=== PATIENT | female | born 1975 | race Caucasian/White ===

== ENCOUNTER 2017-02-28 07:06 | Day surgery (SDC) | payer BC ==
[2017-02-26 16:29] VITALS: BMI 39.5
[~2017-02-28 07:06] MED LIST: CLINDAMYCIN 900 MG in DEXTROSE 5% IN WATER 50 ML IVPB ONE; DEXAMETHASONE SOD PHOSPHATE 10 MG/ML 1 ML VIAL IV ONE; GENTAMICIN 400 MG in SODIUM CHLORIDE 0.9% 100 ML IVPB ONE; HEPARIN SODIUM,PORCINE 5,000 UNIT/ML 1 ML VIAL SQ ONE; HYDROmorphone 0.5 MG/0.5 ML SYRINGE IVP PRN; LIDOCAINE 1% 20 ML VIAL (10MG/ML) FOR IV START INTRADERMA PRN; MIDAZOLAM 2 MG/2 ML VIAL IV PRN; ONDANSETRON 4 MG/2 ML VIAL IVP ONE; SCOPOLAMINE 1.5MG/72HR PATCH TRANSDERM ONE
[2017-02-28] MEDS: LACTATED RINGERS 1,000 ML IV SCH ×2 (07:42→08:18)
[2017-02-28] MEDS ORDERED: NEOSTIGMINE 1 MG/ML 10 ML VIAL ONE (08:18)
[2017-02-28] MEDS ORDERED: PROPOFOL 10 MG/ML 20 ML VIAL IV ONE (08:18)
[2017-02-28] MEDS ORDERED: SUCCINYLCHOLINE CHLORIDE 100 MG/5 ML SYR IV ONE (08:18)
[2017-02-28] MEDS ORDERED: BUPIVACAINE-EPI 0.5%-1:200,000 10 ML VIAL SQ ONE (08:18)
[2017-02-28] MEDS ORDERED: fentaNYL (PF) 50 MCG/ML 2 ML AMP ONE (08:18)
[2017-02-28] MEDS ORDERED: GLYCOPYRROLATE 0.2 MG/ML 2 ML VIAL ONE (08:18)
[2017-02-28] MEDS ORDERED: LIDOCAINE 1% INJ 10MG/ML (20 ML MDV) ONE (08:18)
[2017-02-28] MEDS ORDERED: ROCURONIUM BROMIDE 10 MG/ML 10 ML VIAL IV ONE (08:18)
[2017-02-28] MEDS ORDERED: HYDROmorphone (PF) 1 MG/ML ONE (08:18)
[2017-02-28] MEDS ORDERED: NALOXONE 0.4 MG/ML 1 ML VIAL IV PRN (09:45)
[2017-02-28] MEDS ORDERED: HYDROcodone/APAP 5-325MG 1 EACH TAB PO PRN (09:45)
--- NOTE | 2017-02-28 09:47 | P.OP ---
Date of Procedure: 02/28/17 Procedure(s) Performed: PREOPERATIVE DIAGNOSIS: Chronic cholecystitis POSTOPERATIVE DIAGNOSIS: Same PROCEDURE: Laparoscopic cholecystectomy SURGEON: Mica EBL: Minimal see anesthesia record ANESTHESIA: Gen. COMPLICATIONS: None OPERATIVE PROCEDURE: The patient was brought and placed on the operating room table in the supine position. The patient was placed under general anesthesia at that time. The abdomen was prepped and draped in the usual sterile fashion. A small vertical infraumbilical incision was made. The fascia was grasped with the Cameron forceps. The fascia was retracted anteriorly. The Veress needle was advanced into the peritoneal cavity. The saline drop test was normal. Insufflation took place up to 15 mmHg. A 5 mm optical trocar was advanced and the peritoneal cavity. 2 additional 5 mm trochars were placed in the right upper quadrant under direct visualization. A 10 mm trocar was advanced into the epigastric incision site. The gallbladder was retracted superiorly and laterally. The peritoneum overlying the infundibulum was bluntly dissected. The patient's cystic duct was visualized. The junction between the cystic duct common and hepatic duct was identified. The cystic duct was then divided after placement of 3 10 mm clips on the patient's side and one on the specimen side. The cystic artery was identified and clipped as well. A small vessel was seen along the gallbladder fossa and clipped as well. The gallbladder was then removed from the liver bed using electrocautery. The gallbladder was then removed from the epigastric trocar site with an Endo Catch bag. The gallbladder fossa was irrigated with saline. There was no evidence of any bleeding or biliary drainage seen. The trochars were then removed. The fascia at the 10 millimeter site was closed using a Antoine- Dolores 0 Vicryl stitch. The skin at all 4 sites was closed using a 4-0 Monocryl stitch. At the end of this procedure the sponge and needle counts were correct. DISPOSITION: Stable to the recovery room
[2017-02-28 09:49] VITALS: TEMP 98.6
[2017-02-28] MEDS ORDERED: HYDROmorphone 1 MG/ML 1 ML SYRINGE IVP ONE ×4 (09:58→10:28)
[2017-02-28] MEDS ORDERED: LACTATED RINGERS 1,000 ML IV ONE (10:09)
[2017-02-28] MEDS ORDERED: MEPERIDINE 50 MG/ML SYRINGE IVP ONE (10:42)
[2017-02-28] MEDS ORDERED: HYDROcodone/APAP 5-325MG 1 EACH TAB PO ONE (11:39)
[2017-02-28 12:55] VITALS: BP 128/74; PULSE 62; RESP 16
== END 2017-02-28 13:34 | disposition home or self-care (01) ==
LOC: OR 07:06
PROVIDERS: ATTEND Surgery
DX: K81.1 Chronic cholecystitis (principal); E03.9 Hypothyroidism, unspecified; M79.7 Fibromyalgia; Z88.3 Allergy status to other anti-infective agents; Z91.013 Allergy to seafood; Z88.1 Allergy status to other antibiotic agents; Z79.899 Other long term (current) drug therapy
CPT/HCPCS: 47562; 81025; 88304; J1100; J2710; J2175; J2405; J2001; J3010; J1170; J0330; J2704

== ENCOUNTER 2017-05-14 09:12 | Observation (INO) | payer BC ==
[2017-05-14] MEDS ORDERED: ASPIRIN 81 MG PO STA (09:35)
[2017-05-14] MEDS ORDERED: NITROGLYCERIN OINT 1 INCH/GM PACKET TOPICAL STA (09:35)
[2017-05-14 09:45] LABS: Basophils % (A) 1 %; Eosinophils # (A) 0.2 k/uL (0-0.7); Eosinophils % (A) 3 %; HCT 37.2 % (34.0-46.0); Lymphocytes # (A) 1.7 k/uL (1.0-4.8); Lymphocytes % (A) 26 %; MCHC 32.4 g/dL (31.0-37.0); MCV 86.4 fL (80.0-100.0); Mean Platelet Volume 6.6; Monocytes # (A) 0.3 k/uL (0-1.0); Monocytes % (A) 4 %; Neutrophils # (A) 4.1 k/uL (1.3-7.7); Neutrophils % (A) 64 %; Platelet Count 261 k/uL (150-450); RDW 13.7 % (11.5-15.5); WBC 6.4 k/uL (3.8-10.6)
--- NOTE | 2017-05-14 09:48 | ED ---
General Adult HPI - General Chief complaint: Chest Pain Stated complaint: Chest/Back Arm Pain Time Seen by Provider: 05/14/17 09:22 Source: patient, RN notes reviewed Mode of arrival: ambulatory Limitations: no limitations - History of Present Illness Initial comments: Patient is a pleasant 42-year-old female presenting to the emergency Department with chest discomfort. Symptoms have been waxing and waning over the past couple of weeks. Symptoms somewhat worse today. Patient did have some associated nausea this morning. Discomfort has previously rated 2 to the jaw. Discomfort today radiates to the left arm and back. Discomfort feels sharp. Patient has some chronic dyspnea that is unchanged from baseline. No diaphoresis. - Related Data Home Medications Medication Instructions Recorded Confirmed Citalopram Hydrobromide [CeleXA] 40 mg PO DAILY 11/10/13 05/14/17 Levothyroxine Sodium [Synthroid] 100 mcg PO DAILY 11/10/13 05/14/17 Ergocalciferol [Vitamin D2] 50,000 unit PO WE 02/14/15 05/14/17 Gabapentin [Neurontin] 300 mg PO BID 02/26/17 05/14/17 Multivitamins, Thera [Multivitamin 1 tab PO DAILY 05/14/17 05/14/17 (formulary)] Allergies Allergy/AdvReac Type Severity Reaction Status Date / Time iodine Allergy Rash/Hives Verified 05/14/17 09:45 loracarbef [From Lorabid] Allergy Rash/Hives Verified 05/14/17 09:45 shellfish derived [Shellfish] Allergy Rash/Hives Verified 05/14/17 09:45 Review of Systems ROS Statement: Those systems with pertinent positive or pertinent negative responses have been documented in the HPI. ROS Other: All systems not noted in ROS Statement are negative. Constitutional: Denies: fever Eyes: Denies: eye pain ENT: Denies: ear pain Respiratory: Denies: cough Cardiovascular: Reports: chest pain Endocrine: Reports: fatigue Gastrointestinal: Reports: nausea. Denies: abdominal pain Genitourinary: Denies: dysuria Musculoskeletal: Denies: back pain Skin: Denies: rash Neurological: Denies: weakness Past Medical History Past Medical History: Fibromyalgia, Thyroid Disorder Additional Past Medical History / Comment(s): IBS, History of Any Multi-Drug Resistant Organisms: None Reported Past Surgical History: Adenoidectomy, Appendectomy, Section, Cholecystectomy, Tonsillectomy, Tubal Ligation Additional Past Surgical History / Comment(s): ganglion cyst left wrist Past Anesthesia/Blood Transfusion Reactions: No Reported Reaction Past Psychological History: Depression Smoking Status: Former smoker Past Alcohol Use History: None Reported Past Drug Use History: None Reported - Past Family History Mother Family Medical History: No Reported History General Exam Limitations: no limitations General appearance: alert, in no apparent distress Head exam: Present: atraumatic Eye exam: Present: normal appearance, PERRL ENT exam: Present: normal oropharynx Neck exam: Present: normal inspection Respiratory exam: Present: normal lung sounds bilaterally. Absent: chest wall tenderness Cardiovascular Exam: Present: regular rate, normal rhythm Expanded Peripheral pulses: 2+: Radial (R), Radial (L), Dorsalis Pedis (R), Dorsalis Pedis (L) GI/Abdominal exam: Present: soft. Absent: tenderness Extremities exam: Present: normal inspection. Absent: pedal edema, calf tenderness Back exam: Present: normal inspection. Absent: tenderness Neurological exam: Present: alert Psychiatric exam: Present: normal affect, normal mood Skin exam: Present: normal color Course Vital Signs 05/14/17 05/14/17 09:13 10:12 Temperature 98.1 F Pulse Rate 70 70 Respiratory 20 18 Rate Blood Pressure 155/83 152/86 O2 Sat by Pulse 98 99 Oximetry EKG Findings - EKG Comments: EKG Findings:: Normal sinus rhythm 70. TX 134. QRS 84. QT 410. QTc 442. Normal axis. Nonspecific T waves. Normal QRS. Medical Decision Making - Medical Decision Making Patient reevaluated and improved with nitroglycerin. Patient updated on results and plan. Case was discussed in detail with Dr. Garza, who will admit for Dr. Carrillo. - Lab Data Result diagrams: 05/14/17 09:25 05/14/17 09:25 Lab Results 05/14/17 05/14/17 05/14/17 Range/Units 09:25 09:25 09:25 WBC 6.4 (3.8-10.6) k/uL RBC 4.30 (3.80-5.40) m/uL Hgb 12.0 (11.4-16.0) gm/dL Hct 37.2 (34.0-46.0) % MCV 86.4 (80.0-100.0) fL MCH 28.0 (25.0-35.0) pg MCHC 32.4 (31.0-37.0) g/dL RDW 13.7 (11.5-15.5) % Plt Count 261 (150-450) k/uL Neutrophils % 64 % Lymphocytes % 26 % Monocytes % 4 % Eosinophils % 3 % Basophils % 1 % Neutrophils # 4.1 (1.3-7.7) k/uL Lymphocytes # 1.7 (1.0-4.8) k/uL Monocytes # 0.3 (0-1.0) k/uL Eosinophils # 0.2 (0-0.7) k/uL Basophils # 0.0 (0-0.2) k/uL PT (9.0-12.0) sec INR (<1.2) APTT (22.0-30.0) sec D-Dimer (<0.60) mg/L FEU Sodium 141 (137-145) mmol/L Potassium 4.9 (3.5-5.1) mmol/L Chloride 104 (98-107) mmol/L Carbon Dioxide 25 (22-30) mmol/L Anion Gap 12 mmol/L BUN 11 (7-17) mg/dL Creatinine 0.80 (0.52-1.04) mg/dL Est GFR (MDRD) Af Amer >60 (>60 ml/min/1.73 sqM) Est GFR (MDRD) Non-Af >60 (>60 ml/min/1.73 sqM) Glucose 90 (74-99) mg/dL Calcium 9.2 (8.4-10.2) mg/dL Magnesium 1.9 (1.6-2.3) mg/dL Total Bilirubin 0.4 (0.2-1.3) mg/dL AST 29 (14-36) U/L ALT 39 (9-52) U/L Alkaline Phosphatase 61 (38-126) U/L Total Creatine Kinase 95 (30-135) U/L CK-MB (CK-2) 0.3 (0.0-2.4) ng/mL CK-MB (CK-2) Rel Index 0.3 Troponin I <0.012 (0.000-0.034) ng/mL Total Protein 7.0 (6.3-8.2) g/dL Albumin 4.1 (3.5-5.0) g/dL Amylase 45 (30-110) U/L Lipase 68 (23-300) U/L 05/14/17 Range/Units 09:25 WBC (3.8-10.6) k/uL RBC (3.80-5.40) m/uL Hgb (11.4-16.0) gm/dL Hct (34.0-46.0) % MCV (80.0-100.0) fL MCH (25.0-35.0) pg MCHC (31.0-37.0) g/dL RDW (11.5-15.5) % Plt Count (150-450) k/uL Neutrophils % % Lymphocytes % % Monocytes % % Eosinophils % % Basophils % % Neutrophils # (1.3-7.7) k/uL Lymphocytes # (1.0-4.8) k/uL Monocytes # (0-1.0) k/uL Eosinophils # (0-0.7) k/uL Basophils # (0-0.2) k/uL PT 9.8 (9.0-12.0) sec INR 1.0 (<1.2) APTT 22.1 (22.0-30.0) sec D-Dimer 0.24 (<0.60) mg/L FEU Sodium (137-145) mmol/L Potassium (3.5-5.1) mmol/L Chloride (98-107) mmol/L Carbon Dioxide (22-30) mmol/L Anion Gap mmol/L BUN (7-17) mg/dL Creatinine (0.52-1.04) mg/dL Est GFR (MDRD) Af Amer (>60 ml/min/1.73 sqM) Est GFR (MDRD) Non-Af (>60 ml/min/1.73 sqM) Glucose (74-99) mg/dL Calcium (8.4-10.2) mg/dL Magnesium (1.6-2.3) mg/dL Total Bilirubin (0.2-1.3) mg/dL AST (14-36) U/L ALT (9-52) U/L Alkaline Phosphatase (38-126) U/L Total Creatine Kinase (30-135) U/L CK-MB (CK-2) (0.0-2.4) ng/mL CK-MB (CK-2) Rel Index Troponin I (0.000-0.034) ng/mL Total Protein (6.3-8.2) g/dL Albumin (3.5-5.0) g/dL Amylase (30-110) U/L Lipase (23-300) U/L - Radiology Data Radiology results: image reviewed (Chest x-ray shows no acute process) Disposition Clinical Impression: Chest pain Disposition: ADMITTED IP TO THIS HOSP Referrals: Amanda Carrillo III, MD [Primary Care Provider] - 1-2 days Decision Time: 10:50
[2017-05-14 09:55] LABS: ALT 39 U/L (9-52); AST 29 U/L (14-36); Albumin 4.1 g/dL (3.5-5.0); Alkaline Phosphatase 61 U/L (38-126); Amylase 45 U/L (30-110); Anion Gap 12 mmol/L; Blood Urea Nitrogen 11 mg/dL (7-17); Calcium 9.2 mg/dL (8.4-10.2); Carbon Dioxide 25 mmol/L (22-30); Chloride 104 mmol/L (98-107); Glucose 90 mg/dL (74-99); Lipase 68 U/L (23-300); Potassium 4.9 mmol/L (3.5-5.1); Sodium 141 mmol/L (137-145); Total Bilirubin 0.4 mg/dL (0.2-1.3)
[2017-05-14 09:57] LABS: D-Dimer 0.24 mg/L FEU (<0.60); Partial Thromboplastin Time 22.1 sec (22.0-30.0); Prothrombin Time 9.8 sec (9.0-12.0)
--- NOTE | 2017-05-14 10:04 | XR ---
EXAMINATION TYPE: XR chest 2V DATE OF EXAM: 05/14/2017 COMPARISON: November 03, 1713 HISTORY: Chest pain TECHNIQUE: Frontal and lateral views of the chest are obtained. FINDINGS: There is no focal air space opacity, pleural effusion, or pneumothorax seen. The cardiac silhouette size is within normal limits. The osseous structures are intact. IMPRESSION: No acute cardiopulmonary process.
[2017-05-14 10:07] LABS: Creatine Kinase 95 U/L (30-135)
[2017-05-14] MEDS ORDERED: NITROGLYCERIN SL TABS 0.4 MG TAB SUBLINGUAL STA (10:16)
[2017-05-14 10:21] LABS: Creatine Kinase MB 0.3 ng/mL (0.0-2.4); Troponin I <0.012 ng/mL (0.000-0.034)
[2017-05-14] MEDS ORDERED: NITROGLYCERIN SL TABS 0.4 MG TAB SUBLINGUAL PRN (10:51)
--- NOTE | 2017-05-14 15:29 | P.CRDCN ---
History of Present Illness Consult date: 05/14/17 Consult reason: chest pain History of present illness: Mrs. Alanis is a pleasant 42-year-old female past medical history significant for hypothyroidism, depression and fibromyalgia. She denies history of coronary artery disease and has a remote history of seeing a nurse college in the past for sinus tachycardia. We have been asked to see her in consultation for complaints of chest pain. She states over the previous few weeks she has had intermittent episodes of sharp mid-sternal chest pain with no radiation. This comes on at rest with no specific aggravating factors and no associated symptoms. Earlier in the week she started feeling some pain in her left jaw that was also non-specific with no aggravating factors. She woke up today with again the symptoms of chest pain and this time she had associated nausea. This caused her to present to the ED for evaluation. She was given nitroglycerin and states it actually made the pain worse. She has ongoing dull achy sensation in the chest with no radiation to neck, arm, jaw or back. She denies shortness of breath, dizziness, palpitations, nausea or vomiting. She is resting comfortably in bed in no acute distress. EKG on arrival reveals sinus mechanism with non-specific T-wave abnormalities. Chest xray is negative for an acute cardiopulmonary process. Laboratory data reviewed, hgb 12.0, plt 261, d-dimer 0.24, potassium 4.9, magnesium 1.9, creatinine 0.80, cardiac enzymes negative x1. She takes no cardiac medications currently. There is no old diagnostic testing to review. Review of Systems At the time of my exam: CONSTITUTIONAL: Denies fever. Denies chills. EYES: Denies blurred vision. Denies vision changes. Denies eye pain. EARS, NOSE, MOUTH & THROAT: Denies headache. Denies sore throat. Denies ear pain. CARDIOVASCULAR: Denies chest pain. Denies shortness of breath. Denies orthopnea. Denies PND. Denies palpitations. RESPIRATORY: Denies cough. GASTROINTESTINAL: Denies abdominal pain. Denies diarrhea. Denies constipation. Denies nausea. Denies vomiting. MUSCULOSKELETAL: Denies myalgias. INTEGUMENTARY: Denies pruitis. Denies rash. NEUROLOGIC: Denies numbness. Denies tingling. Denies weakness. PSYCHIATRIC: Denies anxiety. Denies depression. ENDOCRINE: Denies fatigue. Denies weight change. Denies polydipsia. Denies polyurina. GENITOURINARY: Denies burning, hematuria or urgency with micturation. HEMATOLOGIC: Denies history of anemia. Denies bleeding. Past Medical History Past Medical History: Fibromyalgia, Thyroid Disorder Additional Past Medical History / Comment(s): IBS, past hemorrhoids. History of Any Multi-Drug Resistant Organisms: None Reported Past Surgical History: Adenoidectomy, Appendectomy, Section, Cholecystectomy, Orthopedic Surgery, Tonsillectomy, Tubal Ligation Additional Past Surgical History / Comment(s): ganglion cyst left wrist, D&Cs Past Anesthesia/Blood Transfusion Reactions: No Reported Reaction Smoking Status: Former smoker - Past Family History Father Family Medical History: CVA/TIA Additional Family Medical History / Comment(s): Father of a CVA at the age of 57yrs. Mother Family Medical History: Cancer, Myocardial Infarction (ME) Additional Family Medical History / Comment(s): Mother had breast cancer. She had a ME with stent at the age of 54yrs. She is living. Pt's grandmother on mother's side had a CVA. Medications and Allergies Home Medications Medication Instructions Recorded Confirmed Type Citalopram Hydrobromide [CeleXA] 40 mg PO DAILY 11/10/13 05/14/17 History Levothyroxine Sodium [Synthroid] 100 mcg PO DAILY 11/10/13 05/14/17 History Ergocalciferol [Vitamin D2] 50,000 unit PO WE 02/14/15 05/14/17 History Gabapentin [Neurontin] 300 mg PO BID 02/26/17 05/14/17 History Multivitamins, Thera [Multivitamin 1 tab PO DAILY 05/14/17 05/14/17 History (formulary)] Allergies Allergy/AdvReac Type Severity Reaction Status Date / Time iodine Allergy Rash/Hives Verified 05/14/17 09:45 loracarbef [From Lorabid] Allergy Rash/Hives Verified 05/14/17 09:45 shellfish derived [Shellfish] Allergy Rash/Hives Verified 05/14/17 09:45 Physical Exam Vitals: Vital Signs Temp Pulse Pulse Resp BP BP Pulse Ox 05/14/17 12:00 98 F 104 H 16 131/68 97 05/14/17 11:30 98 F 68 18 132/86 97 05/14/17 10:12 70 18 152/86 99 05/14/17 09:13 98.1 F 70 20 155/83 98 Intake and Output 05/14/17 05/14/17 05/14/17 06:59 14:59 22:59 Intake Total 240 Balance 240 Intake: Oral 240 Other: Voiding Method Toilet Weight 118.841 kg Patient Weight 05/15/17 06:59 Weight 118.841 kg Blood pressure 131/68 heart rate 104 afebrile GENERAL: This is a 42-year-old female in no apparent distress at the time of my examination. Obese. HEENT: Head is atraumatic, normocephalic. Pupils are equal, round. Sclerae anicteric. Conjunctivae are clear. Mucous membranes of the mouth are moist. Neck is supple. There is no jugular venous distention. No carotid bruit is heard. LUNGS: Clear to auscultation no wheezes, rales or rhonchi. No chest wall tenderness is noted on palpation or with deep breathing. HEART: Regular rate and rhythm without murmurs, rubs or gallops. S1 and S2 heard. ABDOMEN: Soft, nontender. Bowel sounds are heard. No organomegaly noted. EXTREMITIES: No evidence of peripheral edema and no calf tenderness noted. VASCULAR: Radial and dorsalis pedis pulses palpated, no evidence of clubbing. NEUROLOGIC: Patient is awake, alert and oriented x3. Results 05/14/17 09:25 05/14/17 09:25 Cardiac Enzymes 05/14/17 05/14/17 Range/Units 09:25 09:25 AST 29 (14-36) U/L CK-MB (CK-2) 0.3 (0.0-2.4) ng/mL Troponin I <0.012 (0.000-0.034) ng/mL Coagulation 05/14/17 Range/Units 09:25 PT 9.8 (9.0-12.0) sec APTT 22.1 (22.0-30.0) sec CBC 05/14/17 Range/Units 09:25 WBC 6.4 (3.8-10.6) k/uL RBC 4.30 (3.80-5.40) m/uL Hgb 12.0 (11.4-16.0) gm/dL Hct 37.2 (34.0-46.0) % Plt Count 261 (150-450) k/uL Comprehensive Metabolic Panel 05/14/17 Range/Units 09:25 Sodium 141 (137-145) mmol/L Potassium 4.9 (3.5-5.1) mmol/L Chloride 104 (98-107) mmol/L Carbon Dioxide 25 (22-30) mmol/L BUN 11 (7-17) mg/dL Creatinine 0.80 (0.52-1.04) mg/dL Glucose 90 (74-99) mg/dL Calcium 9.2 (8.4-10.2) mg/dL AST 29 (14-36) U/L ALT 39 (9-52) U/L Alkaline Phosphatase 61 (38-126) U/L Total Protein 7.0 (6.3-8.2) g/dL Albumin 4.1 (3.5-5.0) g/dL Current Medications Generic Name Dose Route Start Last Admin Trade Name Freq PRN Reason Stop Dose Admin Aspirin 81 mg 05/15/17 09:00 Aspirin PO DAILY YOVANI Nitroglycerin 1 inch 05/14/17 12:00 Nitro-Bid Oint TOPICAL Q6HR YOVANI Nitroglycerin 0.4 mg 05/14/17 10:51 Nitrostat SUBLINGUAL Q5M PRN Chest Pain Intake and Output 05/14/17 05/14/17 05/14/17 06:59 14:59 22:59 Intake Total 240 Balance 240 Intake: Oral 240 Other: Voiding Method Toilet Weight 118.841 kg Patient Weight 05/15/17 06:59 Weight 118.841 kg 05/14/17 09:25 05/14/17 09:25 Assessment and Plan Assessment: ASSESSMENT 1. Chest pain, atypical. Initial EKG shows no signs of ischemia as well as negative initial set of cardiac enzymes. 2. Hypothyroid 3. Obesity PLAN Obtain 2D echocardiogram and doppler study to assess cardiac structure and function. Continue to obtain serial EKG and cardiac enzymes to rule out an acute coronary event. Check TSH and free T4. Ongoing telemetry monitoring for an acute arrhythmia. Further recommendations will be based upon clinical course. Nurse Practitioner note has been reviewed, I agree with a documented findings and plan of care. Patient was seen and examined.
[2017-05-14] MEDS: ACETAMINOPHEN TAB 325 MG TAB PO PRN ×2 (15:32→23:02)
[2017-05-14] MEDS: NITROGLYCERIN OINT 1 INCH/GM PACKET TOPICAL SCH ×2 (15:39→19:00)
[2017-05-14 16:08] LABS: Creatine Kinase 85 U/L (30-135)
[2017-05-14 16:19] LABS: Creatine Kinase MB 0.3 ng/mL (0.0-2.4); Troponin I <0.012 ng/mL (0.000-0.034)
[2017-05-14] MEDS ORDERED: ERGOCALCIFEROL 50,000 UNIT CAP PO SCH (18:15)
[2017-05-14] MEDS: CITALOPRAM HYDROBROMIDE 20 MG TAB PO SCH (18:52)
[2017-05-14] MEDS: LEVOTHYROXINE 100 MCG TAB PO SCH (18:52)
[2017-05-14] MEDS: MULTIVITAMINS, THERA 1 EACH TAB PO SCH (18:52)
[2017-05-14] MEDS: GABAPENTIN 300 MG CAP PO SCH (20:15)
[2017-05-14 21:55] LABS: Creatine Kinase 81 U/L (30-135)
[2017-05-14 22:10] LABS: Creatine Kinase MB <0.2 ng/mL (0.0-2.4); Troponin I <0.012 ng/mL (0.000-0.034)
--- NOTE | 2017-05-14 22:54 | HP ---
HISTORY AND PHYSICAL DATE OF SERVICE: 05/14/2017 CHIEF COMPLAINT: Chest pain. HISTORY OF PRESENT ILLNESS: This 42-year-old woman with a past medical history of multiple medical problems including fibromyalgia, hypothyroidism, irritable bowel syndrome, appendectomy, cholecystectomy, history of anxiety, depression being followed by Dr. Carrillo in the outpatient setting was complaining of chest pain. The pain was felt in the left side of the chest, which was waxing and waning over the past couple weeks. Today the pain got worse and was more dull in character and the patient also has numbness of the left upper limb and left shoulder. Also the patient nausea. The previously the pain also . The patient came to [facility] and was admitted for further evaluation and treatment. There is no history of fever, rigors. No headache, loss of consciousness or seizures. The initial troponins are negative. EKG showed ST-T changes. PAST MEDICAL HISTORY: History of appendectomy, history of scoliosis, fibromyalgia, hypothyroidism, irritable bowel syndrome, hemorrhoids. MEDICATIONS: Prior to admission include medications are: 1. Multivitamins 1 p.o. daily. 2. Synthroid 100 mcg daily. 3. Neurontin 300 mg p.o. b.i.d. 4. Vitamin D2 3000 p.o. Friday. 5. Celexa 40 mg p.o. daily. ALLERGIES: IODINE, SHELLFISH. FAMILY HISTORY: Family history of cancer. History of myocardial infarction, mother had myocardial infarction age of 54. SOCIAL HISTORY: Previous history of smoking, occasional alcohol intake. REVIEW OF SYSTEMS: ENT: No diminished hearing or vision. CARDIOVASCULAR: As mentioned. Respirations: As mentioned earlier. GI no nausea or vomiting. no dysuria. Nervous System: No numbness or weakness. ALLERGY/IMMUNOLOGY: No asthma or hayfever. Musculoskeletal: As mentioned earlier. HEMATOLOGY/ONCOLOGY: No history of anemia. Endocrine: No history of diabetes or hypothyroidism. CONSTITUTIONAL: As mentioned earlier. Dermatology: Negative. Rheumatology: Negative. Psychiatric: As mentioned earlier. PHYSICAL EXAMINATION: The patient is alert and oriented times three. Blood pressure 118/64, respirations 16, temperature 98.6, pulse ox 97% on room air. HEENT: Conjunctivae normal. Oral mucosa moist. Neck is no jugular venous distention. No lymph node enlargement. No carotid bruit. Cardiovascular is S1-S2. Respiratory: Breath sounds diminished in the bases. A few scattered rhonchi and crackles. Expiratory wheezing also present. ABDOMEN: Soft, nontender. No mass palpable. Legs no edema and no swelling. NERVOUS SYSTEM: Higher functions as mentioned earlier. Moves all four limbs. No focal deficits. SKIN: No ulcer, rash or bleeding. LABS: CBC BMP within normal limits. ASSESSMENT: 1. Chest pain possible unstable angina. 2. Extensive family history of coronary artery disease. 3. Fibromyalgia. 4. Irritable bowel syndrome. 5. Adenoidectomy. 6. Appendectomy. 7. Depression. 8. Remote history of nicotine dependence. RECOMMENDATIONS AND DISCUSSION: This 42-year-old woman who presented with multiple complex medical issues, we will monitor the patient closely, continue the current medications, symptomatic treatment. Otherwise, at this time, I recommend cardiology consultation rule out myocardial infarction. Unstable angina protocol. Possible stress test or cardiac cath per Cardiology. Otherwise, guarded prognosis because of multiple complex medical issues. Further recommendations to follow. MAK / YAKELINN: [id number] / JOAQUIN
[2017-05-15 02:37] LABS: Cholesterol 192 mg/dL (<200); HDL Cholesterol 52 mg/dL (40-60); LDL Cholesterol,Calculated 115 mg/dL (0-99); Triglycerides 125 mg/dL (<150)
[2017-05-15 08:08] VITALS: RESP 18
[2017-05-15] MEDS ORDERED: ASPIRIN 325 MG TAB PO SCH (09:00)
[2017-05-15] MEDS ORDERED: ASPIRIN 81 MG PO SCH (09:00)
[2017-05-15] MEDS: MULTIVITAMINS, THERA 1 EACH TAB PO SCH (10:38)
[2017-05-15] MEDS: LEVOTHYROXINE 100 MCG TAB PO SCH (10:38)
[2017-05-15] MEDS: ACETAMINOPHEN TAB 325 MG TAB PO PRN (10:38)
[2017-05-15] MEDS: CITALOPRAM HYDROBROMIDE 20 MG TAB PO SCH (10:38)
[2017-05-15] MEDS: GABAPENTIN 300 MG CAP PO SCH (10:38)
[2017-05-15] MEDS: NITROGLYCERIN OINT 1 INCH/GM PACKET TOPICAL SCH ×3 (10:39→11:37)
--- NOTE | 2017-05-15 12:00 | ECHOF ---
Referral Reason:chest pain MEASUREMENTS -------- HEIGHT: 172.7 cm WEIGHT: 118.8 kg BP: 131/68 RVIDd: 2.9 cm (< 3.3) IVSd: 1.2 cm (0.6 - 1.1) LVIDd: 4.5 cm (3.9 - 5.3) LVPWd: 1.1 cm (0.6 - 1.1) IVSs: 1.6 cm LVIDs: 2.8 cm LVPWs: 1.6 cm LA Diam: 3.5 cm (2.7 - 3.8) LAESV Index (A-L): 14.99 ml/m Ao Diam: 2.6 cm (2.0 - 3.7) AV Cusp: 2.0 cm (1.5 - 2.6) MV EXCURSION: 12.755 mm (> 18.000) MV EF SLOPE: 102 mm/s (70 - 150) EPSS: 0.5 cm MV E Uche: 0.78 m/s MV DecT: 211 ms MV A Uche: 0.73 m/s MV E/A Ratio: 1.07 FINDINGS -------- Sinus rhythm. This was a technically good study. The left ventricular size is normal. There is borderline concentric left ventricular hypertrophy. Overall left ventricular systolic function is normal with, an EF between 55 - 60 %. The right ventricle is normal in size. Normal LA size by volume 22+/-6 ml/m2. The right atrium is normal in size. The aortic valve is trileaflet and appears structurally normal. There is trace mitral regurgitation. The tricuspid valve appears structurally normal. There is no pulmonic regurgitation present. The aortic root size is normal. IVC Not well visulized. There is no pericardial effusion. CONCLUSIONS -------- 1. Sinus rhythm. 2. This was a technically good study. 3. The left ventricular size is normal. 4. There is borderline concentric left ventricular hypertrophy. 5. Overall left ventricular systolic function is normal with, an EF between 55 - 60 %. 6. The right ventricle is normal in size. 7. Normal LA size by volume 22+/-6 ml/m2. 8. The right atrium is normal in size. 9. The aortic valve is trileaflet and appears structurally normal. 10. There is trace mitral regurgitation. 11. The tricuspid valve appears structurally normal. 12. There is no pulmonic regurgitation present. 13. The aortic root size is normal. 14. IVC Not well visulized. 15. There is no pericardial effusion. TERRITORY MANAGER GENERAL SALES: Hina Fernandez RDCS
[2017-05-15 12:01] VITALS: BP 137/85; PULSE 80; TEMP 98.5
--- NOTE | 2017-05-16 06:43 | DS ---
DISCHARGE SUMMARY DATE OF SERVICE: 05/15/2017 FINAL DIAGNOSES: 1. Chest pain possible unstable angina. Possibly musculoskeletal thank negative stress test. Myocardial infarction ruled out. 2. Extensive family history of coronary artery disease. 3. Fibromyalgia. 4. Irritable bowel syndrome. 5. Adenoidectomy. 6. Appendectomy. 7. Depression. 8. Remote history of nicotine dependence. DISCHARGE DISPOSITION: Patient is being discharged in stable condition with guarded prognosis. HISTORY OF PRESENT ILLNESS: This 42-year-old with a past medical history of multiple medical problems was having chest pain, myocardial infarction ruled out. Patient was having chest pain and myocardial infarction ruled out and cardiology cleared the patient for discharge. The patient being discharged in a stable condition with guarded prognosis. DISCHARGE INSTRUCTIONS: 1. Diet is cardiac diet. 2. Activity limited until follow up. 3. Follow up Dr. Carrillo in 2 to 3 days. 4. Follow up with Dr. Delvin Leon as advised. MEDS: 1. Aspirin 81 mg p.o. daily. 2. Celexa 40 mg p.o. daily. 3. Drisdol [id number]. 4. Neurontin 300 mg p.o. b.i.d. 5. Synthroid 100 mcg p.o. daily. 6. Multivitamins 1 p.o. daily. MMODL / IJN: [id number] /
--- NOTE | 2017-05-16 13:35 | ECHOS ---
STRESS ECHOCARDIOGRAM INDICATIONS: Chest pain. BASELINE HEART RATE: 75 BASELINE BLOOD PRESSURE: 101/76 MAXIMUM HEART RATE: 154 MAXIMUM BLOOD PRESSURE: 162/93 85% MPHR: 151 100% MPHR: 178 METS: 9.1 MAXIMUM STAGE REACHED: 3 TOTAL EXERCISE TIME: 7:30 CLINICAL INFORMATION: Patient was exercised for a total period of 7 minutes and 30 seconds. The peak heart rate of 154 was achieved. Maximum blood pressure 162/93 mmHg was noted. Resting EKG shows normal sinus rhythm with normal ME interval and QRS duration and normal ST-T waves. No ST-segment depression suggestive of ischemia is noted. The baseline echocardiographic images reveal normal left ventricular chamber size with normal left ventricular systolic function. In the immediate post exercise period normal increase in the wall thickness and contractility is noted. FINAL IMPRESSION: 1. This stress echocardiographic study is negative for stress-induced ischemia. 2. EKG portion of the stress test is not suggestive of ischemia. 3. Patient's exercise tolerance is normal. MMODL / IJN: [id number] /
== END 2017-05-15 13:13 | disposition home or self-care (01) ==
LOC: EC 09:12 → 3OBS 10:51
PROVIDERS: ADMIT Hospitalist; ATTEND Hospitalist
DX: R07.89 Other chest pain (principal); R07.2 Precordial pain; M79.602 Pain in left arm; R11.0 Nausea; R68.84 Jaw pain; R20.0 Anesthesia of skin; R06.00 Dyspnea, unspecified; M79.7 Fibromyalgia; K58.9 Irritable bowel syndrome, unspecified; F32.9 Major depressive disorder, single episode, unspecified; E03.9 Hypothyroidism, unspecified; F41.9 Anxiety disorder, unspecified; E66.9 Obesity, unspecified; Z68.39 Body mass index [BMI] 39.0-39.9, adult; Z90.49 Acquired absence of other specified parts of digestive tract; Z87.891 Personal history of nicotine dependence; Z88.1 Allergy status to other antibiotic agents; Z91.013 Allergy to seafood; Z91.048 Other nonmedicinal substance allergy status; Z79.899 Other long term (current) drug therapy; Z82.49 Family history of ischemic heart disease and other diseases of the circulatory system; Z82.3 Family history of stroke; Z80.3 Family history of malignant neoplasm of breast
CPT/HCPCS: 99285; 36415; 93005; 93017; 93306; 93350; 85379; 80061; 80053; 84443; 82150; 82550; 82553; 83690; 83735; 84484; 85025; 85610; 85730; 71046; G0378 ×2

== ENCOUNTER → 2018-07-16 | Outpatient (CLI) | payer BC ==
--- NOTE | 2018-07-17 07:04 | US ---
EXAMINATION TYPE: US thyroid st tissue head/neck DATE OF EXAM: 07/16/2018 COMPARISON: NONE CLINICAL HISTORY: R22.1 SWELLING, MASS AND LUMP. Patient on Synthroid, hypothyroidism GLAND SIZE: Right Lobe: 5.6 x 1.2 x 2.1 cm Overall Parenchyma: homogenous Left Lobe: 4.5 x 1.5 x 1.9 cm Overall Parenchyma: homogeneous Isthmus Thickness: 0.4 cm NODULES RIGHT: # of nodules measured on right: 1 1. 0.7 X 0.5 x 0.6 cm cystic nodule with calcification at the lower pole with well-defined margins; . This nodule is wider than tall and shows no intranodular vascularity. Prior size: no prior LEFT: # of nodules measured on left: 1 1. 0.6 X 0.4 x 0.6 cm cystic nodule with calcification at the lower pole with well-defined margins ; . This nodule is wider than tall and shows no intranodular vascularity. Prior size: no prior ISTHMUS: # of nodules measured in the isthmus: 0 Bilateral neck scanned, lymph nodes noted bilaterally IMPRESSION: 3 cystic areas noted lower pole right thyroid, only largest measured
== END | disposition home or self-care (01) ==
LOC: RADUSWWP 15:37
PROVIDERS: ATTEND Family Medicine
DX: E04.1 Nontoxic single thyroid nodule (principal)
CPT/HCPCS: 76536

== ENCOUNTER → 2018-07-30 | Outpatient (CLI) | payer BC ==
--- NOTE | 2018-07-30 10:03 | FL ---
EXAMINATION TYPE: FL barium swallow DATE OF EXAM: 07/30/2018 CLINICAL HISTORY: Dysphasia TECHNIQUE: A double contrast esophagram is performed utilizing air and barium. A total of 39 second s of fluoroscopic time was utilized during procedure. COMPARISON: None FINDINGS: The esophagus shows normal motility and emptying into the stomach. No evidence of esophage al stricture noted. No significant gastroesophageal reflux was seen during real time performance of t his study. Tiny hiatal hernia. IMPRESSION: 1. Tiny hiatal hernia with no evidence of gastroesophageal reflux.
== END | disposition home or self-care (01) ==
LOC: RADFLWHC 09:10
PROVIDERS: ATTEND Family Medicine
DX: K44.9 Diaphragmatic hernia without obstruction or gangrene (principal)
CPT/HCPCS: 74220

== ENCOUNTER → 2018-09-03 | Outpatient (CLI) | payer BC ==
--- NOTE | 2018-09-08 09:38 | MM ---
Reason for exam: screening (asymptomatic). Last mammogram was performed 3 years and 1 month ago. History: Family history of premenopausal breast cancer in mother at age 38 and breast cancer in paternal grandmother. Physical Findings: A clinical breast exam by your physician is recommended on an annual basis and results should be correlated with mammographic findings. MG 3D Screening Mammo W/Cad Bilateral CC, MLO, and XCCL view(s) were taken. Prior study comparison: August 09, 2015, bilateral MG screening mammo w CAD. July 12, 2011, bilateral digital screening mammo w/CAD. There are scattered fibroglandular densities. No suspicious abnormality. Stable bilateral upper outer quadrant focal asymmetries. No significant changes when compared with prior studies. ASSESSMENT: Benign, BI-RAD 2 RECOMMENDATION: Routine screening mammogram of both breasts in 1 year.
== END | disposition home or self-care (01) ==
LOC: RADMAMWWP 13:23
PROVIDERS: ATTEND Family Medicine
DX: Z12.31 Encounter for screening mammogram for malignant neoplasm of breast (principal)
CPT/HCPCS: 77063; 77067

== ENCOUNTER 2019-04-17 11:18 | Observation (INO) | payer BC ==
[2019-04-17] MEDS ORDERED: ASPIRIN 81 MG PO STA (11:56)
--- NOTE | 2019-04-17 11:59 | ED ---
Chest Pain HPI - General Chief Complaint: Chest Pain Stated Complaint: Chest pain/jaw pain Time Seen by Provider: 04/17/19 11:39 Source: patient, RN notes reviewed Mode of arrival: ambulatory Limitations: no limitations - History of Present Illness Initial Comments: This a 43-year-old female with a history of fibromyalgia SLE status post cholecystectomy in the past who presents with complaints of one week of intermittent pain between her shoulder blades she states is burning in nature today she started developing pain around the anterior aspect of her chest and then around 11 AM this morning she started developing jaw and teeth pain 8-9/10 severity felt like an ache. He states his since he completed resolved this time. She has no personal history of heart disease is nonsmoker is a family history of heart disease her mother had heart disease manifest at the age of 52. It is CVA in early age grandmother had heart disease in her 40s. She also states she's had her menstrual period for about a month. No other modifying factors this time MD Complaint: chest pain - Related Data Home Medications Medication Instructions Recorded Confirmed Citalopram Hydrobromide [CeleXA] 40 mg PO DAILY 11/10/13 05/14/17 Levothyroxine Sodium [Synthroid] 100 mcg PO DAILY 11/10/13 05/14/17 Ergocalciferol [Vitamin D2 50,000 unit PO WE 02/14/15 05/14/17 (DRISDOL)] Gabapentin [Neurontin] 300 mg PO BID 02/26/17 05/14/17 Multivitamins, Thera [Multivitamin 1 tab PO DAILY 05/14/17 05/14/17 (formulary)] Previous Rx's Medication Instructions Recorded Aspirin 81 mg PO DAILY chew 05/15/17 Allergies Allergy/AdvReac Type Severity Reaction Status Date / Time iodine Allergy Rash/Hives Verified 05/14/17 09:45 loracarbef [From Lorabid] Allergy Rash/Hives Verified 05/14/17 09:45 shellfish derived [Shellfish] Allergy Rash/Hives Verified 05/14/17 09:45 Review of Systems ROS Statement: Those systems with pertinent positive or pertinent negative responses have been documented in the HPI. ROS Other: All systems not noted in ROS Statement are negative. EKG Findings - EKG Results: EKG: interpreted by EDWAR, sinus rhythm (Sinus rhythm a 75 appear interval 154 QRS 82 QT since QTC 392/[address]-T wave changes) Past Medical History Past Medical History: Fibromyalgia, Thyroid Disorder Additional Past Medical History / Comment(s): IBS, past hemorrhoids. History of Any Multi-Drug Resistant Organisms: None Reported Past Surgical History: Adenoidectomy, Appendectomy, Section, Cholecystectomy, Orthopedic Surgery, Tonsillectomy, Tubal Ligation Additional Past Surgical History / Comment(s): ganglion cyst left wrist, D&Cs Past Anesthesia/Blood Transfusion Reactions: No Reported Reaction Past Psychological History: Depression Smoking Status: Former smoker - Past Family History Father Family Medical History: CVA/TIA Additional Family Medical History / Comment(s): Father of a CVA at the age of 57yrs. Mother Family Medical History: Cancer, Myocardial Infarction ([place]) Additional Family Medical History / Comment(s): Mother had breast cancer. She had a [place] with stent at the age of 54yrs. She is living. Pt's grandmother on mother's side had a CVA. General Exam - General Exam Comments Initial Comments: This is a well-developed well-nourished awake alert oriented 3 female Limitations: no limitations General appearance: alert, in no apparent distress Head exam: Present: atraumatic, normocephalic, normal inspection Eye exam: Present: normal appearance, PERRL, EOMI. Absent: scleral icterus, conjunctival injection, periorbital swelling ENT exam: Present: normal exam, mucous membranes moist Neck exam: Present: normal inspection, full ROM, other (No stridor JVD or bruits). Absent: tenderness, meningismus, lymphadenopathy Respiratory exam: Present: normal lung sounds bilaterally. Absent: respiratory distress, wheezes, rales, rhonchi, stridor Cardiovascular Exam: Present: regular rate, normal rhythm, normal heart sounds. Absent: systolic murmur, diastolic murmur, rubs, gallop, clicks GI/Abdominal exam: Present: soft, normal bowel sounds. Absent: distended, tenderness, guarding, rebound, rigid Extremities exam: Present: normal inspection, full ROM, normal capillary refill. Absent: tenderness, pedal edema, joint swelling, calf tenderness Back exam: Present: normal inspection Neurological exam: Present: alert, oriented X3, CN II-XII intact Psychiatric exam: Present: normal affect, normal mood Skin exam: Present: warm, dry, intact, normal color. Absent: rash Course Vital Signs 04/17/19 11:27 Temperature 97.8 F Pulse Rate 78 Respiratory 18 Rate Blood Pressure 152/89 O2 Sat by Pulse 98 Oximetry Chest Pain MDM - MDM Did review the imaging and report no acute findings. Patient had recurrent chest pain which is seen (better with nitroglycerin topical. Due to the presentation the patient be admitted I did discuss case Dr. Garza patient be admitted with consultation by cardiology. Disposition Clinical Impression: Chest pain, Unstable angina pectoris Disposition: ADMITTED IP TO THIS HOSP Condition: Fair Referrals: Amanda Carrillo III, MD [Primary Care Provider] - 1-2 days
--- NOTE | 2019-04-17 12:13 | XR ---
EXAMINATION TYPE: XR chest 2V DATE OF EXAM ORDERED: 04/17/2019 HISTORY: Chest Pain. REFERENCE: Previous study dated 05/14/2017. FINDINGS: The lungs are clear. Pleural spaces are clear. Heart size is normal. IMPRESSION: NORMAL CHEST.
[2019-04-17 12:16] LABS: Basophils # (A) 0.1 k/uL (0-0.2); Basophils % (A) 1 %; Eosinophils # (A) 0.2 k/uL (0-0.7); Eosinophils % (A) 3 %; HCT 32.8 % (34.0-46.0); HGB 11.1 gm/dL (11.4-16.0); Lymphocytes # (A) 1.6 k/uL (1.0-4.8); Lymphocytes % (A) 31 %; MCH 30.3 pg (25.0-35.0); MCHC 33.9 g/dL (31.0-37.0); MCV 89.2 fL (80.0-100.0); Mean Platelet Volume 7.2; Monocytes # (A) 0.2 k/uL (0-1.0); Monocytes % (A) 3 %; Neutrophils # (A) 3.1 k/uL (1.3-7.7); Neutrophils % (A) 60 %; Platelet Count 211 k/uL (150-450); RBC 3.68 m/uL (3.80-5.40); RDW 13.4 % (11.5-15.5); WBC 5.2 k/uL (3.8-10.6)
[2019-04-17 12:21] LABS: ALT 21 U/L (4-34); AST 34 U/L (14-36); African American GFR (CKD) >90 (>60 ml/min/1.73 sqM); Albumin 4.2 g/dL (3.5-5.0); Alkaline Phosphatase 45 U/L (38-126); Anion Gap 6 mmol/L; Blood Urea Nitrogen 15 mg/dL (7-17); Calcium 9.6 mg/dL (8.4-10.2); Carbon Dioxide 25 mmol/L (22-30); Chloride 107 mmol/L (98-107); Glucose 86 mg/dL (74-99); Magnesium 1.6 mg/dL (1.6-2.3); Non-African American GFR(CKD) >90 (>60 ml/min/1.73 sqM); Potassium 4.4 mmol/L (3.5-5.1); Sodium 138 mmol/L (137-145); Total Bilirubin 0.6 mg/dL (0.2-1.3); Total Protein 7.2 g/dL (6.3-8.2)
[2019-04-17 12:28] LABS: D-Dimer 0.2 mg/L FEU (<0.60); INR 0.9 (<1.2); Partial Thromboplastin Time 22.5 sec (22.0-30.0); Prothrombin Time 9.9 sec (9.0-12.0)
[2019-04-17] MEDS ORDERED: NITROGLYCERIN OINT 1 INCH/GM PACKET TOPICAL STA (12:40)
[2019-04-17] MEDS ORDERED: NITROGLYCERIN SL TABS 0.4 MG TAB SUBLINGUAL PRN (15:10)
[2019-04-17] MEDS ORDERED: HEPARIN SODIUM,PORCINE 5,000 UNIT/ML 1 ML VIAL IV ONE (15:10)
[2019-04-17] MEDS: SODIUM CHLORIDE 0.9% 1,000 ML IV SCH (16:16)
[2019-04-17] MEDS: HEPARIN SOD,PORK IN 0.45% NACL 25,000 UNIT in 0.45% NACL 1 250ML.BAG IV SCH (16:16)
[2019-04-17] MEDS ORDERED: ALPRAZolam 0.25 MG TAB PO PRN (16:42)
[2019-04-17] MEDS ORDERED: TEMAZEPAM 15 MG CAP PO PRN (16:42)
[2019-04-17] MEDS: NITROGLYCERIN OINT 1 INCH/GM PACKET TOPICAL SCH ×2 (17:14→23:31)
[2019-04-17] MEDS: PANTOPRAZOLE 40 MG TABLET PO SCH (17:14)
[2019-04-17] MEDS: ACETAMINOPHEN TAB 500 MG TAB PO PRN (19:45)
--- NOTE | 2019-04-17 20:06 | HP ---
HISTORY AND PHYSICAL CHIEF COMPLAINT: Chest pain. HISTORY OF PRESENT ILLNESS: This 43-year-old woman with a past medical history of multiple medical problems including fibromyalgia, hypothyroidism, irritable bowel syndrome, adenoidectomy, depression, being followed by Dr. aCrrillo in the outpatient setting complaining of chest pain. The patient had chest pain about the last 1 week. Initially the pain started as a burning sensation began in the shoulder blades and subsequently into the front of the chest and today the patient had pain in front of the chest which was rather sharp and also 8 to 9 in intensity, but subsequently pressure-type of feeling and the patient also had numbness of the joint and left-sided joint. The patient was concerned and the patient came to [facility] and was admitted for further evaluation and treatment. There is no history of fever, rigors or chills. No history of loss of conscious or seizures at this time. Initial troponins are negative. Initial EKG did not show acute abnormality except some nonspecific ST-T changes. The D-dimer is also negative. PAST MEDICAL HISTORY: History of fibromyalgia, hypothyroidism, irritable bowel syndrome, history of appendectomy, adenoidectomy, section, history of depression. The patient is followed by Dr. Carrillo in the outpatient. MEDICATIONS: 1. Synthroid 100 mcg p.o. q.h.s. 2. Celexa 40 mg q.h.s. ALLERGIES: IODINE, LORABID, SHELLFISH. FAMILY HISTORY: History of cancer, history of myocardial infarction in the family. History of CVA in grandmother. SOCIAL HISTORY: Occasional alcohol. Previous smoker. REVIEW OF SYSTEMS: ENT: No diminished vision. No diminished hearing. CARDIOVASCULAR: Mentioned earlier. RESPIRATION: No cough or hemoptysis. GI no nausea or vomiting. no dysuria. CENTRAL NERVOUS SYSTEM: No numbness or weakness. ALLERGY/IMMUNOLOGY: No asthma or hayfever. MUSCULOSKELETAL as mentioned earlier. HEMATOLOGY/ONCOLOGY: No history of anemia. ENDOCRINE: Hypothyroidism. CONSTITUTIONAL: As mentioned earlier. DERMATOLOGY: Negative. RHEUMATOLOGY negative. PSYCHIATRY as mentioned. PHYSICAL EXAM: Alert and oriented times three. Pulse 67, blood pressure 126/88, respiration 18, temperature 97.8, pulse ox 98% on room air. HEENT: Conjunctivae normal. NECK: No JVD. CARDIOVASCULAR: S1, S2 muffled. RESPIRATORY: Breath sounds diminished in the bases. No rhonchi. No crackles. ABDOMEN: Soft, nontender. No mass palpable. LEGS: No edema. No swelling. NERVOUS SYSTEM: Higher functions as mentioned earlier. Moves all 4 limbs. No focal motor or sensory deficits. Lymphatics: No lymph nodes palpable in the neck, axillae or groin. SKIN: No ulcer, no rashes and no bleeding. JOINTS: No active deforming arthropathy. LAB STUDIES: WBC 5.8, hemoglobin 11.1. ASSESSMENT: 1. Chest pain possible unstable angina. 2. Anemia, normocytic anemia of chronic disease. 3. Fibromyalgia. 4. Obesity with body mass of 38.5. 5. Irritable bowel syndrome. 6. Adenoidectomy. 7. Appendectomy. 8. Cholecystectomy. 9. History of depression. 10.Remote history of nicotine dependence. RECOMMENDATIONS AND DISCUSSION: This 43-year-old woman who presented with multiple complex medical issues, we will monitor the patient closely, continue the current medications, symptomatic treatment. Rule out myocardial infarction. Otherwise, I would recommend cardiology consultation, unstable angina protocol, possible stress test. Prognosis guarded because of multiple complex medical issues. Further recommendations to follow. Discussed with the who understands and agrees. Further recommendations to follow. A copy of dictation being forwarded to Dr. Carrillo who is the primary physician. MMODL / IJN: [id number] /
[2019-04-17] MEDS ORDERED: GABAPENTIN 300 MG CAP PO SCH (21:00)
[2019-04-17] MEDS ORDERED: HEPARIN SODIUM,PORCINE 5,000 UNIT/ML 1 ML VIAL IV PRN (21:08)
[2019-04-18 05:48] LABS: Basophils % (A) 0 %; Eosinophils # (A) 0.2 k/uL (0-0.7); Eosinophils % (A) 3 %; HCT 31.9 % (34.0-46.0); HGB 10.5 gm/dL (11.4-16.0); Lymphocytes # (A) 2.2 k/uL (1.0-4.8); Lymphocytes % (A) 44 %; MCH 29.9 pg (25.0-35.0); MCV 90.6 fL (80.0-100.0); Mean Platelet Volume 7.2; Monocytes # (A) 0.2 k/uL (0-1.0); Monocytes % (A) 4 %; Neutrophils # (A) 2.3 k/uL (1.3-7.7); Neutrophils % (A) 47 %; Platelet Count 223 k/uL (150-450); RBC 3.52 m/uL (3.80-5.40); RDW 13.3 % (11.5-15.5)
[2019-04-18 06:18] LABS: African American GFR (CKD) >90 (>60 ml/min/1.73 sqM); Anion Gap 9 mmol/L; Blood Urea Nitrogen 13 mg/dL (7-17); Carbon Dioxide 25 mmol/L (22-30); Chloride 107 mmol/L (98-107); Cholesterol 180 mg/dL (<200); Glucose 124 mg/dL (74-99); Non-African American GFR(CKD) >90 (>60 ml/min/1.73 sqM); Potassium 3.9 mmol/L (3.5-5.1); Sodium 141 mmol/L (137-145); Triglycerides 244 mg/dL (<150)
[2019-04-18] MEDS: ACETAMINOPHEN TAB 500 MG TAB PO PRN ×2 (06:18→19:43)
[2019-04-18] MEDS: NITROGLYCERIN OINT 1 INCH/GM PACKET TOPICAL SCH ×4 (06:18→23:32)
[2019-04-18] MEDS: LEVOTHYROXINE 100 MCG TAB PO SCH (06:18)
[2019-04-18 06:19] LABS: Calcium 8.8 mg/dL (8.4-10.2)
[2019-04-18 06:41] LABS: HDL Cholesterol 49 mg/dL (40-60); LDL Cholesterol,Calculated 82 mg/dL (0-99)
[2019-04-18] MEDS ORDERED: ASPIRIN 325 MG TAB PO SCH (09:00)
--- NOTE | 2019-04-18 10:28 | P.CRDCN ---
History of Present Illness Consult date: 04/18/19 History of present illness: This is a 48-year-old female with history of fibromyalgia, hypothyroidism, and also history of depression who was having some burning sensation in between the shoulder blades in the back for the last 3-4 days. Subsequently the pain came to the front of the chest and also in the left jaw area and she was concerned and came to the hospital. Her EKGs and cardiac enzymes are so far negative. No history of any previous myocardial infarction. Had a stress test about 2 years ago which was negative for ischemia. Her chest pains appear to be atypical. We will proceed with a stress echocardiogram. If that is negative patient could be discharged home Review of Systems As per the chart Past Medical History Past Medical History: Fibromyalgia, Thyroid Disorder Additional Past Medical History / Comment(s): IBS, past hemorrhoids, lupus History of Any Multi-Drug Resistant Organisms: None Reported Past Surgical History: Adenoidectomy, Appendectomy, Section, Cholecystectomy, Orthopedic Surgery, Tonsillectomy, Tubal Ligation Additional Past Surgical History / Comment(s): ganglion cyst left wrist, D&Cs Past Anesthesia/Blood Transfusion Reactions: No Reported Reaction Past Psychological History: Depression Additional Psychological History / Comment(s): Pt resides with her spouse and 2 under age children. Pt is independent. Smoking Status: Former smoker Past Alcohol Use History: None Reported Additional Past Alcohol Use History / Comment(s): STARTED SMOKING AT AGE 17 QUIT AT AGE 21. patient takes CBD oil Past Drug Use History: None Reported - Past Family History Father Family Medical History: CVA/TIA Additional Family Medical History / Comment(s): Father of a CVA at the age of 57yrs. Mother Family Medical History: Cancer, Myocardial Infarction ([place]) Additional Family Medical History / Comment(s): Mother had breast cancer. She had a [place] with stent at the age of 54yrs. She is living. Pt's grandmother on mother's side had a CVA. Medications and Allergies Home Medications Medication Instructions Recorded Confirmed Type Citalopram Hydrobromide [CeleXA] 40 mg PO HS 11/10/13 04/17/19 History Levothyroxine Sodium [Synthroid] 100 mcg PO HS 11/10/13 04/17/19 History Allergies Allergy/AdvReac Type Severity Reaction Status Date / Time iodine Allergy Rash/Hives Verified 04/17/19 15:17 loracarbef [From Lorabid] Allergy Rash/Hives Verified 04/17/19 15:17 shellfish derived [Shellfish] Allergy Rash/Hives Verified 04/17/19 15:17 Physical Exam Vitals: Vital Signs Temp Pulse Pulse Resp BP BP Pulse Ox 04/18/19 07:37 97.8 F 69 18 129/82 98 04/18/19 05:00 98.0 F 84 18 134/78 97 04/17/19 23:20 97.9 F 74 18 134/84 98 04/17/19 19:19 98.1 F 73 18 129/75 99 04/17/19 16:40 98.1 F 70 18 113/69 96 04/17/19 16:20 97.8 F 67 18 126/88 96 04/17/19 14:30 67 18 126/88 96 04/17/19 11:27 97.8 F 78 18 152/89 98 Intake and Output 04/17/19 04/18/19 04/18/19 22:59 06:59 14:59 Intake Total 163.045 Balance 163.045 Intake: Intake, IV Titration 163.045 Amount Heparin Sod,Pork in 0.45% 163.045 NaCl 25,000 unit In 0.45 % NaCl 1 250ml.bag @ 8.7 UNITS/KG/HR 9.984 mls/hr IV .Q24H [facility] Rx#: [id number] Other: Voiding Method Toilet Toilet Toilet # Voids 1 1 Weight 114.759 kg 118.6 kg GENERAL EXAM: Patient is alert and oriented and doesn't appear to be in any acute distress HEENT: Normocephalic. Normal reaction of pupils, equal size, normal range of extraocular motion. No erythema or exudates in the throat. NECK: No masses, no nuchal rigidity. CHEST: No chest wall deformity. LUNGS: Equal air entry with no crackles or wheeze. HEART: S1 and S2 normal with no audible mumurs or gallops. Regular rhythm, f emorals equal on both sides.. ABDOMEN: No hepatosplenomegaly, normal bowel sounds, no guarding or rigidity. SKIN: No rashes CENTRAL NERVOUS SYSTEM: No focal deficits. EXTREMITIES: No cyanosis, clubbing or edema. Results 04/18/19 05:25 02/02/20 05:25 Cardiac Enzymes 04/17/19 04/17/19 04/17/19 Range/Units 11:57 11:57 17:40 AST 34 (14-36) U/L Troponin I <0.012 <0.012 (0.000-0.034) ng/mL 04/17/19 Range/Units 23:51 AST (14-36) U/L Troponin I <0.012 (0.000-0.034) ng/mL Coagulation 04/17/19 04/17/19 04/18/19 Range/Units 11:57 22:34 05:25 PT 9.9 (9.0-12.0) sec APTT 22.5 31.2 H 79.8 H (22.0-30.0) sec Lipids 04/18/19 Range/Units 05:25 Triglycerides 244 H (<150) mg/dL Cholesterol 180 (<200) mg/dL HDL Cholesterol 49 (40-60) mg/dL CBC 04/17/19 04/18/19 Range/Units 11:57 05:25 WBC 5.2 5.0 (3.8-10.6) k/uL RBC 3.68 L 3.52 L (3.80-5.40) m/uL Hgb 11.1 L 10.5 L (11.4-16.0) gm/dL Hct 32.8 L 31.9 L (34.0-46.0) % Plt Count 211 223 (150-450) k/uL Comprehensive Metabolic Panel 04/17/19 04/18/19 Range/Units 11:57 05:25 Sodium 138 141 (137-145) mmol/L Potassium 4.4 3.9 (3.5-5.1) mmol/L Chloride 107 107 (98-107) mmol/L Carbon Dioxide 25 25 (22-30) mmol/L BUN 15 13 (7-17) mg/dL Creatinine 0.70 0.77 (0.52-1.04) mg/dL Glucose 86 124 H (74-99) mg/dL Calcium 9.6 8.8 (8.4-10.2) mg/dL AST 34 (14-36) U/L ALT 21 (4-34) U/L Alkaline Phosphatase 45 (38-126) U/L Total Protein 7.2 (6.3-8.2) g/dL Albumin 4.2 (3.5-5.0) g/dL Current Medications Generic Name Dose Route Start Last Admin Trade Name Freq PRN Reason Stop Dose Admin Acetaminophen 500 mg 04/17/19 16:42 04/18/19 06:18 Tylenol Tab PO 500 mg Q6HR PRN Administration Fever and/ or Mild Pain Alprazolam 0.25 mg 04/17/19 16:42 Xanax PO TID PRN Anxiety Aspirin 325 mg 04/18/19 09:00 Aspirin PO DAILY [facility] Citalopram Hydrobromide 40 mg 04/18/19 09:00 Celexa PO DAILY [facility] Ergocalciferol 50,000 unit 04/21/19 09:00 Vitamin D2 PO WE [facility] Heparin Sodium (Porcine) 0 unit 04/17/19 21:08 04/17/19 23:17 Heparin IV 4,000 unit PER PROTOCOL PRN Administration Low PTT Protocol Sodium Chloride 1,000 mls @ 20 mls/hr 04/17/19 15:15 04/17/19 16:16 Saline 0.9% IV 20 mls/hr .Q24H YOVANI Administration Heparin Sodium/Sodium Chloride 250 mls @ 9.984 mls/hr 04/17/19 15:15 04/18/19 06:11 25,000 unit/ Sodium Chloride IV 9.7 units/kg/hr .Q24H YOVANI 11.132 mls/hr Titration Protocol 8.7 UNITS/KG/HR Levothyroxine Sodium 100 mcg 04/18/19 06:30 04/18/19 06:18 Synthroid PO 100 mcg DAILY@0630 YOVANI Administration Multivitamins 1 each 04/18/19 09:00 Theragran PO DAILY [facility] Nitroglycerin 0.4 mg 04/17/19 15:10 Nitrostat SUBLINGUAL Q5M PRN Chest Pain Nitroglycerin 1 inch 04/17/19 18:00 04/18/19 06:18 Nitro-Bid Oint TOPICAL 1 inch Q6HR OYVANI Administration Pantoprazole Sodium 40 mg 04/17/19 16:45 04/17/19 17:14 Protonix PO 40 mg AC-[id number] YOVANI Administration Temazepam 15 mg 04/17/19 16:42 Restoril PO HS PRN Insomnia Intake and Output 04/17/19 04/18/19 04/18/19 22:59 06:59 14:59 Intake Total 163.045 Balance 163.045 Intake: Intake, IV Titration 163.045 Amount Heparin Sod,Pork in 0.45% 163.045 NaCl 25,000 unit In 0.45 % NaCl 1 250ml.bag @ 8.7 UNITS/KG/HR 9.984 mls/hr IV .Q24H YOVANI Rx#: [id number] Other: Voiding Method Toilet Toilet Toilet # Voids 1 1 Weight 114.759 kg 118.6 kg 04/18/19 05:25 04/18/19 05:25 EKG Interpretations (text) Sinus rhythm Assessment and Plan (1) Fibromyalgia Current Visit: Yes Status: Acute Code(s): M79.7 - FIBROMYALGIA SNOMED Code(s): 332702135 (2) Chest pain Current Visit: Yes Status: Acute Code(s): R07.9 - CHEST PAIN, UNSPECIFIED SNOMED Code(s): 61147664 Plan: From cardiac standpoint, her pains appear to be atypical. We'll proceed with a stress echocardiogram in the morning
[2019-04-18] MEDS: PANTOPRAZOLE 40 MG TABLET PO SCH (10:51)
[2019-04-18] MEDS: CITALOPRAM HYDROBROMIDE 20 MG TAB PO SCH (10:51)
[2019-04-18] MEDS: MULTIVITAMINS, THERA 1 EACH TAB PO SCH (10:51)
[2019-04-18] MEDS: SODIUM CHLORIDE 0.9% 1,000 ML IV SCH (19:40)
[2019-04-18] MEDS: HEPARIN SOD,PORK IN 0.45% NACL 25,000 UNIT in 0.45% NACL 1 250ML.BAG IV SCH (19:41)
--- NOTE | 2019-04-18 21:35 | PN ---
PROGRESS NOTE DATE OF SERVICE: 04/18/2019 This 43-year-old woman is admitted with chest pain is being closely monitored. Initial troponins are negative. Cardiology evaluation in progress as the patient is complaining on and off chest pain at this time. Chest pain is situated on the left side and center part of chest. EXAM: Alert and oriented times three. Pulse 68. Blood pressure 131/78. Respirations 18. Temperature 97.8, pulse ox 97% on room air. HEENT: Conjunctivae normal. Neck no jugular venous distention. CARDIOVASCULAR: S1, S2 muffled. RESPIRATION: Breath sounds diminished in the bases. No rhonchi. No crackles. ABDOMEN is soft, nontender. LEGS: No edema. No swelling. CENTRAL NERVOUS SYSTEM: No focal deficits. LABS: WBC 5, hemoglobin is 10.5, and triglycerides are 244. ASSESSMENT: 1. Chest pain possible unstable angina. 2. Anemia, normocytic of chronic disease possibly. Exact etiology unknown. 3. Fibromyalgia. 4. Irritable bowel syndrome. 5. Adenoidectomy. 6. Appendectomy. 7. Cholecystectomy. 8. History of depression. 9. Remote history of nicotine dependence. 10.Hypertriglyceridemia mild. 11.Obesity, body mass index of 39.2. RECOMMENDATIONS AND DISCUSSION: This 43-year-old woman who presented with multiple complex medical issues. We will monitor the patient closely. Continue the current medications and symptomatic treatment. Unstable angina protocol. Closely follow with Cardiology. Otherwise, possible stress test. Further recommendations to follow. MMCARLOSL / YAKELINN: [id number] /
[2019-04-19] MEDS: LEVOTHYROXINE 100 MCG TAB PO SCH (05:57)
[2019-04-19] MEDS: NITROGLYCERIN OINT 1 INCH/GM PACKET TOPICAL SCH (05:59)
[2019-04-19 07:18] VITALS: RESP 18; TEMP 98.1
[2019-04-19 08:27] LABS: Basophils % (A) 1 %; Eosinophils # (A) 0.2 k/uL (0-0.7); Eosinophils % (A) 3 %; HCT 34.5 % (34.0-46.0); HGB 11.1 gm/dL (11.4-16.0); Lymphocytes # (A) 1.9 k/uL (1.0-4.8); Lymphocytes % (A) 31 %; MCH 29.1 pg (25.0-35.0); MCHC 32.2 g/dL (31.0-37.0); MCV 90.4 fL (80.0-100.0); Mean Platelet Volume 7.1; Monocytes # (A) 0.2 k/uL (0-1.0); Monocytes % (A) 3 %; Neutrophils # (A) 3.7 k/uL (1.3-7.7); Neutrophils % (A) 61 %; Platelet Count 256 k/uL (150-450); RBC 3.81 m/uL (3.80-5.40); RDW 13.2 % (11.5-15.5)
[2019-04-19 08:45] LABS: African American GFR (CKD) >90 (>60 ml/min/1.73 sqM); Anion Gap 7 mmol/L; Blood Urea Nitrogen 11 mg/dL (7-17); Calcium 8.7 mg/dL (8.4-10.2); Carbon Dioxide 26 mmol/L (22-30); Chloride 107 mmol/L (98-107); Glucose 96 mg/dL (74-99); Non-African American GFR(CKD) >90 (>60 ml/min/1.73 sqM); Potassium 4.2 mmol/L (3.5-5.1); Sodium 140 mmol/L (137-145)
--- NOTE | 2019-04-19 09:27 | P.PN ---
Subjective This is a pleasant 43-year-old female past medical history significant for hypothyroidism, fibromyalgia and depression. She denies prior history of coronary artery disease and does not follow with a etl informatica developer regularly. She is seen and examined sitting up in bed with family at the bedside. She denies any further symptoms of chest discomfort. Laboratory data reviewed, cardiac enzymes negative 3, sodium 140, potassium 4.2 and creatinine 0.75. Blood pressure 132/79 heart rate 73 afebrile maintaining oxygen saturation on room a ir. GENERAL: Well-appearing, well-nourished and in no acute distress. NECK: Supple without JVD or thyromegaly. LUNGS: Breath sounds clear to auscultation bilaterally. Respiration equal and unlabored. No wheezes, rales or rhonchi. HEART: Regular rate and rhythm without murmurs, rubs or gallops. S1 and S2 heard. EXTREMITIES: Normal range of motion, no edema. No clubbing or cyanosis. Peripheral pulses intact. ASSESSMENT Chest pain, atypical. An acute coronary event has been ruled out. Fibromyalgia Obesity, BMI 39 PLAN An acute event has been ruled out. Decrease aspirin to 81 mg daily. Proceed with stress echocardiogram to assess for stress-induced cardiac ischemia. If stress test is normal she is stable for discharge from a cardiac perspective. Nurse Practitioner note has been reviewed, I agree with a documented findings and plan of care. Patient was seen and examined. Objective - Vital Signs Vital signs: Vital Signs Temp 98.1 F 04/19/19 07:00 Pulse 73 04/19/19 08:00 Resp 18 04/19/19 08:00 BP 132/79 04/19/19 07:00 Pulse Ox 98 04/19/19 07:00 Intake & Output 04/18/19 04/19/19 04/19/19 18:59 06:59 18:59 Intake Total 246.955 Balance 246.955 Intake: Intake, IV Titration 246.955 Amount Heparin Sod,Pork in 0.45% 86.955 NaCl 25,000 unit In 0.45 % NaCl 1 250ml.bag @ 8.7 UNITS/KG/HR 9.984 mls/hr IV .Q24H YOVANI Rx#: [id number] Sodium Chloride 0.9% 1, 160 000 ml @ 20 mls/hr IV . Q24H YOVANI Rx#:[id number] Other: Voiding Method Toilet Toilet Toilet # Voids 1 2 - Labs CBC & Chem 7: 04/19/19 07:48 04/19/19 07:48 Labs: Abnormal Lab Results - Last 24 Hours (Table) 04/18/19 04/19/19 04/19/19 Range/Units 11:56 07:48 07:48 Hgb 11.1 L (11.4-16.0) gm/dL APTT 49.1 H 40.7 H (22.0-30.0) sec
[2019-04-19] MEDS: MULTIVITAMINS, THERA 1 EACH TAB PO SCH (11:18)
[2019-04-19] MEDS: CITALOPRAM HYDROBROMIDE 20 MG TAB PO SCH (11:18)
[2019-04-19] MEDS: PANTOPRAZOLE 40 MG TABLET PO SCH (11:18)
[2019-04-19 11:23] VITALS: BP 118/78; PULSE 96
--- NOTE | 2019-04-19 12:45 | ECHOS ---
STRESS ECHOCARDIOGRAM INDICATIONS: Chest pain. MEDICATIONS: Synthroid, Celexa BASELINE HEART RATE: 72 BASELINE BLOOD PRESSURE: 140/77 MAXIMUM HEART RATE: 171 MAXIMUM BLOOD PRESSURE: 177/52 85% MPHR: 150 100% MPHR: 177 METS: 9.7 MAXIMUM STAGE REACHED: 3 TOTAL EXERCISE TIME: 8:00 CLINICAL INFORMATION: Baseline EKG revealed normal sinus rhythm without significant ST changes. Patient walked for 8 minutes on a standard Phil protocol. She achieved a maximal heart rate of 171 beats per minute. She developed fatigue and shortness of breath but did not have any angina. There was a lot of artifact on the initial EKGs, but subsequent EKGs were little more acceptable, but overall the quality of EKG tracings were suboptimal. From an EKG standpoint, this is an inconclusive stress test because of a lot of baseline and exercise-related artifact. The patient did not have angina. She did achieve more than 85% of her predicted maximal heart rate. By EKG criteria, this is a technically inconclusive stress test because of the difficult to EKGs to interpret secondary to poor quality. Baseline echo images revealed normal wall motion and wall thickening of all segments. At peak exercise, there was good augmentation of different wall motion, wall thickening of all segments suggesting that there is no evidence of stress-induced ischemia. IMPRESSION: 1. Fair exercise capacity with a technically inconclusive stress test because of poor quality EKGs. Patient did not have angina. She achieved more than 85% of predicted maximal heart rate and walked for 8 minutes on a standard Phil protocol. 2. Normal stress echocardiogram without evidence of ischemia. MMODL / IJN: [id number] /
--- NOTE | 2019-04-19 19:48 | DS ---
DISCHARGE SUMMARY DATE OF SERVICE: 04/19/2018. FINAL DIAGNOSES: 1. Chest pain, possible musculoskeletal pain. Normal stress echo. 2. Anemia, normocytic anemia, possibly chronic disease possibly nutritional, exact etiology unknown. 3. Fibromyalgia. 4. Elevated triglycerides with normal cholesterol. 5. Irritable bowel syndrome history. 6. Adenoidectomy. 7. Appendectomy. 8. Cholecystectomy. 9. History of depression. 10.Remote history of nicotine dependence. 11.Obesity with body mass of 39.2. DISCHARGE DISPOSITION: The patient will be discharged in stable condition with guarded prognosis. Discharge cleared by Cardiology. HISTORY OF PRESENT ILLNESS: This 43-year-old woman with a past medical history of multiple medical problems was admitted with chest pain, myocardial infarction ruled out and cardiology performed stress echo which was normal. Showed no evidence of any reversible ischemia. Of note, the hemoglobin was 10.5 and 11. Recommend close outpatient followup and supplement vitamins. The patient is apparently a vegetarian. The patient also had some vaginal bleeding also to be followed in the outpatient setting. The triglycerides are slightly elevated at 244. Recommend close followup in the outpatient setting. The total cholesterol, LDL, HDL they were within normal limits. On exam, vitals are stable. Cardiovascular is S1, S2 normal. Abdomen soft. Nervous system: No focal deficits. DISCHARGE ADVICE AND MEDICATIONS: 1. Diet is cardiac diet. 2. Activity limited until followup. 3. Follow up with Dr. Carrillo in 1-2 days. 4. Follow up with Dr. Zarco as recommended. DISCHARGE MEDICATIONS: 1. Celexa 40 mg q.h.s. 2. Synthroid 100 mcg p.o. q.h.s. 3. Multivitamins 1 p.o. daily. 4. Vitamin D2 50,000 daily. Once again, the patient is being discharged in stable condition with guarded prognosis. MMODL / IJN: [id number] /
[2019-04-20] MEDS ORDERED: ASPIRIN 81 MG PO SCH (09:00)
[2019-04-21] MEDS ORDERED: ERGOCALCIFEROL 50,000 UNIT CAP PO SCH (09:00)
== END 2019-04-19 12:45 | disposition home or self-care (01) ==
LOC: EC 11:18 → 1SOBS 15:10
PROVIDERS: ADMIT Hospitalist; ATTEND Hospitalist
DX: R07.9 Chest pain, unspecified (principal); D64.9 Anemia, unspecified; M79.7 Fibromyalgia; M32.9 Systemic lupus erythematosus, unspecified; E78.1 Pure hyperglyceridemia; E03.9 Hypothyroidism, unspecified; K58.9 Irritable bowel syndrome, unspecified; E66.9 Obesity, unspecified; Z68.39 Body mass index [BMI] 39.0-39.9, adult; Z87.891 Personal history of nicotine dependence; F32.9 Major depressive disorder, single episode, unspecified; Z90.49 Acquired absence of other specified parts of digestive tract; Z82.49 Family history of ischemic heart disease and other diseases of the circulatory system; Z82.3 Family history of stroke; Z80.3 Family history of malignant neoplasm of breast; Z79.1 Long term (current) use of non-steroidal anti-inflammatories (NSAID); Z79.890 Hormone replacement therapy; Z79.899 Other long term (current) drug therapy; Z88.8 Allergy status to other drugs, medicaments and biological substances; Z91.013 Allergy to seafood; Z91.048 Other nonmedicinal substance allergy status
CPT/HCPCS: 93005 ×2; 96365; 96366 ×3; 96376; 99285; 36415; 93351; 85379; 83880; 80061; 80053; 80048 ×2; 83690; 83735; 84484; 85025 ×3; 85610; 85730 ×3; 71046; G0378 ×3; J1644 ×3

== ENCOUNTER → 2020-06-26 | Outpatient (CLI) | payer BC ==
--- NOTE | 2020-06-26 10:25 | CT ---
EXAMINATION TYPE: CT chest w con DATE OF EXAM: 06/26/2020 COMPARISON: Radiograph 04/17/2019 HISTORY: 45-year-old female Chest pains, tightness in chest TECHNIQUE: Contiguous axial scanning of the chest after the administration of 100 mL of Isovue 300. Coronal/sagittal reconstructions performed. CT DLP: 623.6mGycm. Automatic exposure control utilized for a dose reduction. FINDINGS: Heart normal size without pericardial effusion. No thoracic lymphadenopathy. Central airways are clear. Lungs show no consolidation or pleural effusion. Low-attenuation liver suggesting underlying fatty infiltration. Cholecystectomy clips. Bones: Anterior endplate spondylosis mid to lower thoracic spine. Bridging anterior endplate spurs ar e present from T7 through T9 levels. IMPRESSION: 1. No acute pulmonary process. 2. Suspect underlying hepatic steatosis. 3. Some anterior bridging endplate spurs from T7 through T9 levels.
== END | disposition home or self-care (01) ==
LOC: RADCTMAIN 08:16
PROVIDERS: ATTEND Family Medicine
DX: R07.89 Other chest pain (principal); M46.04 Spinal enthesopathy, thoracic region
CPT/HCPCS: 71260; Q9967

== ENCOUNTER → 2021-03-14 | Outpatient (CLI) | payer BC ==
--- NOTE | 2021-03-14 10:44 | MR ---
EXAMINATION TYPE: MR lumbar spine wo con DATE OF EXAM: 03/14/2021 COMPARISON: NONE HISTORY: Intervertebral disc disorder w/radiculopathy lumbar region, radiculopathy, cervical region, low back pain, weakness TECHNIQUE: T1 and T2 axial and sagittal images of the lumbar spine are submitted. FINDINGS: Exam severely limited by motion artifact. There is no abnormal signal seen within the visualized spinal cord or paraspinal soft tissues. At L1-2 there is no disc herniation or canal stenosis. No foraminal encroachment. At L2-3 there is no disc herniation or canal stenosis. There is facet arthropathy. Very mild circumfe rential disc bulging. No foraminal encroachment. Assessment limited by severe motion artifact. At L3-4 there is degenerative disc disease with facet arthropathy and ligamentum flavum hypertrophy. Mild disc bulging with underlying canal stenosis and mild to moderate bilateral foraminal encroachmen t. Level limited by motion artifact. At L4-5 there is annular tear and broad-based central disc herniation resulting in anterior compressi on of thecal sac. Bilateral foraminal encroachment. Assessment limited by severe motion artifact. At L5-S1 there is degenerative disc disease and central disc bulging. No foraminal encroachment or ca nal stenosis. IMPRESSION: 1. Exam by severe motion artifact demonstrates degenerative disc disease at multiple levels with a di sc herniation seen at L4-L5 with suspected significant compression of the thecal sac, bilateral gustabo inal encroachment and nerve canal stenosis. Level markedly limited by motion artifact on axial images . 2. Disc bulging or protrusions L3-4 and L5-S1. Facet arthropathy at L3-4 with hypertrophic change and ligamentum flavum results in borderline canal stenosis and bilateral foraminal encroachment. EXAMINATION TYPE: MR cervical spine wo con DATE OF EXAM: 03/14/2021 COMPARISON: NONE HISTORY: Intervertebral disc disorder w/radiculopathy lumbar region, radiculopathy, cervical region, low back pain, weakness TECHNIQUE: T1 sagittal and coronal, T2 sagittal, and gradient echo axial views of the cervical spine are submitted. FINDINGS: The cranial cervical junction is preserved. There is no abnormal signal seen within the sp inal cord or paraspinal soft tissues. Report was called to referring clinician 10:37 AM 03/14/2021. At C2-3 there is no disc herniation or canal stenosis. Mild bilateral uncovertebral joint hypertrophy and mild degenerative disc disease At C3-4 there is no disc herniation or canal stenosis. No foraminal encroachment. At C4-5 there is uncovertebral joint hypertrophy greater on the right with mild right-sided foraminal encroachment. No disc herniation or canal At C5-6 there is degenerative disc disease with broad-based disc herniation resulting in anterior com pression of the spinal cord. Could not exclude a degree of faint abnormal signal in the spinal cord. At C6-7 there is no disc herniation or canal stenosis. No foraminal encroachment. At C7-T1 there is no disc herniation or canal stenosis. No foraminal encroachment. IMPRESSION: 1. Central disc herniation resulting in anterior compression of the spinal cord at the level C5-C6. Could not exclude faint abnormal signal spinal cord and degree of compressive myelitis.
== END | disposition home or self-care (01) ==
LOC: RADMRIMAIN 08:09
PROVIDERS: ATTEND Physician Assistant Medical
DX: M51.17 Intervertebral disc disorders with radiculopathy, lumbosacral region (principal); M48.061 Spinal stenosis, lumbar region without neurogenic claudication; M50.122 Cervical disc disorder at C5-C6 level with radiculopathy
CPT/HCPCS: 72141; 72148

== ENCOUNTER → 2022-01-22 | Outpatient (CLI) | payer BC ==
--- NOTE | 2022-01-23 08:40 | MM ---
Reason for Exam: Screening (asymptomatic). Last mammogram was performed 3 year(s) and 5 month(s) ago. Patient History: Menarche at age 12. First Full-Term at age 25. Patient used Progesterone for 1 year. Patient used Hormonal Contraceptives for 10 years. Paternal grandmother had breast cancer. Mother had breast cancer, age 38. Last menstrual period: 12/29/2021 Risk Values: Sydnee 5 year model risk: 1.7%. NCI Lifetime model risk: 17.8%. Prior Study Comparison: 04/19/2003 Screening Mammogram, [facility]. 07/12/2011 Bilateral Screening Mammogram, [facility]. 08/09/2015 Bilateral Screening Mammogram, [facility]. 09/03/2018 Bilateral Screening Mammogram, [facility]. Tissue Density: The breast tissue is heterogeneously dense. This may lower the sensitivity of mammography. Findings: Analyzed By CAD. There is no suspicious group of microcalcifications or new suspicious mass in either breast. Overall Assessment: Benign, BI-RAD 2 Management: Screening Mammogram of both breasts in 1 year. A clinical breast exam by your physician is recommended on an annual basis and results should be correlated with mammographic findings. Electronically signed and approved by: Sae Gomez M.D. Radiologis
== END | disposition home or self-care (01) ==
LOC: RADMAMWWP 16:21
PROVIDERS: ATTEND Family Medicine
DX: Z12.31 Encounter for screening mammogram for malignant neoplasm of breast (principal); Z80.3 Family history of malignant neoplasm of breast
CPT/HCPCS: 77063; 77067

== ENCOUNTER → 2022-08-29 | Outpatient (CLI) | payer BC ==
--- NOTE | 2022-08-29 10:54 | MM ---
Reason for Exam: Clinical finding. Last screening mammogram was performed 7 month(s) ago. Indicated Problems: Lump or thickening of the right side for 4 Month(s). Patient History: Menarche at age 12. First Full-Term at age 25. Patient used Progesterone for 1 year. Patient used Hormonal Contraceptives for 10 years. Paternal grandmother had breast cancer. Mother had breast cancer, age 38. Risk Values: Sydnee 5 year model risk: 1.7%. NCI Lifetime model risk: 17.5%. Prior Study Comparison: 08/09/2015 Bilateral Screening Mammogram, [facility]. 09/03/2018 Bilateral Screening Mammogram, [facility]. 01/22/2022 Bilateral MG 3D screening mammo w/cad, [facility]. Tissue Density: Right: The breast tissue is almost entirely fat. Findings: Analyzed By CAD. No evidence for mass or distortion throughout the right breast or at the site of clinical concern. Ultrasound is recommended. Overall Assessment: Incomplete: need additional imaging evaluation, BI-RAD 0 Management: Diagnostic Breast Ultrasound of the right breast. . Results were given to the patient verbally at the time of exam. Patient should continue monthly self-breast exams. A clinical breast exam by your physician is recommended on an annual basis. This exam should not preclude additional follow-up of suspicious palpable abnormalities. Note on Sydnee scores and lifetime risk: 1. A Sydnee score greater than 3% is considered moderate risk. If this is the case, consider specialist referral to assess eligibility for a risk reducing agent. 2. If overall lifetime risk for the development of breast cancer is 20% or higher, the patient may qualify for future screening with alternating mammogram and breast MRI. Electronically signed and approved by: Sae Gomez M.D. Radiologis
--- NOTE | 2022-08-29 11:15 | USB ---
Reason for Exam: Clinical finding. Patient History: Menarche at age 12. First Full-Term at age 25. Patient used Progesterone for 1 year. Patient used Hormonal Contraceptives for 10 years. Paternal grandmother had breast cancer. Mother had breast cancer, age 38. Risk Values: Sydnee 5 year model risk: 1.7%. NCI Lifetime model risk: 17.5%. Technique: Method: Targeted. Prior Study Comparison: 08/09/2015 Bilateral Screening Mammogram, [facility]. 09/03/2018 Bilateral Screening Mammogram, [facility]. 01/22/2022 Bilateral MG 3D screening mammo w/cad, [facility]. Findings: The area of palpable concern of the right breast was scanned. No solid or cystic masses are identified within the breast. Small subcutaneous lesion noted at the right 9:00 position measuring 4 mm soft reflect a small sebaceous cyst.. Overall Assessment: Benign, BI-RAD 2 Management: Screening Mammogram of both breasts in 1 year. A clinical breast exam by your physician is recommended on an annual basis and results should be correlated with mammographic findings. This exam should not preclude additional follow-up of suspicious palpable abnormalities. Results were given to the patient verbally at the time of exam. Electronically signed and approved by: Sae Gomez M.D. Radiologis
== END | disposition home or self-care (01) ==
LOC: RADMAMWWP 10:20
PROVIDERS: ATTEND Family Medicine
DX: N63.13 Unspecified lump in the right breast, lower outer quadrant (principal); Z80.3 Family history of malignant neoplasm of breast
CPT/HCPCS: 77061; 77065

== ENCOUNTER 2023-09-05 21:40 | Emergency (ER) | payer BC ==
[2023-09-05 21:56] VITALS: RESP 20
--- NOTE | 2023-09-05 22:22 | ED ---
Back Pain HPI - General Chief Complaint: Back Pain/Injury Stated Complaint: Back Pain Time Seen by Provider: 09/05/23 22:21 Source: patient, RN notes reviewed Mode of arrival: wheelchair Limitations: no limitations - History of Present Illness Initial Comments: Quick note: 48-year-old female presented to the ER with the complaint of back pain. 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 States this occurred around 5 PM this evening. She does have a history of herniated disks in her lumbar spine. She has been extremely painful to walk. She denies any bowel or bladder incontinence, saddle paresthesias, fevers or history of IV drug use. - Related Data Home Medications Medication Instructions Recorded Confirmed Citalopram Hydrobromide [CeleXA] 40 mg PO DAILY 11/10/13 09/03/23 Levothyroxine Sodium [Synthroid] 100 mcg PO DAILY 11/10/13 09/03/23 Baclofen [Lioresal] 20 mg PO HS PRN 09/03/23 09/03/23 Cyanocobalamin [Vitamin B-12 1,000 mcg SQ Q14D 09/03/23 09/03/23 Injection] Phentermine HCl [Adipex P] 15 mg PO DAILY 09/03/23 09/03/23 Pregabalin [Lyrica] 150 mg PO BID 09/03/23 09/03/23 Topiramate [Topamax] 100 mg PO DAILY 09/03/23 09/03/23 Previous Rx's Medication Instructions Recorded Ergocalciferol [Vitamin D2 50,000 unit PO WE cap 04/19/19 (DRISDOL)] Lidocaine 5% Patch [Lidoderm] 1 patch TOPICAL DAILY #30 patch 09/06/23 Allergies Allergy/AdvReac Type Severity Reaction Status Date / Time loracarbef [From Lorabid] Allergy Rash/Hives Verified 09/05/23 21:55 shellfish derived [Shellfish] Allergy Rash/Hives Verified 09/05/23 21:55 Review of Systems ROS Statement: Those systems with pertinent positive or pertinent negative responses have been documented in the HPI. ROS Other: All systems not noted in ROS Statement are negative. Past Medical History Past Medical History: Fibromyalgia, Thyroid Disorder Additional Past Medical History / Comment(s): IBS, past hemorrhoids, lupus, back pain History of Any Multi-Drug Resistant Organisms: None Reported Past Surgical History: Adenoidectomy, Appendectomy, Section, Cholecystectomy, Orthopedic Surgery, Tonsillectomy, Tubal Ligation Additional Past Surgical History / Comment(s): ganglion cyst left wrist, D&Cs Past Anesthesia/Blood Transfusion Reactions: No Reported Reaction Past Psychological History: Depression Smoking Status: Never smoker Past Alcohol Use History: None Reported Past Drug Use History: Marijuana - Past Family History Father Family Medical History: CVA/TIA Additional Family Medical History / Comment(s): Father of a CVA at the age of 57yrs. Mother Family Medical History: Cancer, Myocardial Infarction (MT) Additional Family Medical History / Comment(s): Mother had breast cancer. She had a MT with stent at the age of 54yrs. She is living. Pt's grandmother on mother's side had a CVA. General Exam - General Exam Comments Initial Comments: Visual Physical Exam Vital signs reviewed General: Well-appearing, nontoxic, no acute distress. Head: Normocephalic, atraumatic Eyes: PERRLA, EOMI ENT: Airway patent Chest: Nonlabored breathing Skin: No visual rash, normal skin tone Neuro: Alert and oriented 3 Musculoskeletal: No gross abnormalities Limitations: no limitations General appearance: alert, in no apparent distress Neck exam: Present: normal inspection. Absent: tenderness, meningismus, lymphadenopathy Respiratory exam: Present: normal lung sounds bilaterally. Absent: respiratory distress, wheezes, rales, rhonchi, stridor Cardiovascular Exam: Present: regular rate, normal rhythm, normal heart sounds. Absent: systolic murmur, diastolic murmur, rubs, gallop, clicks Extremities exam: Present: normal inspection, full ROM, normal capillary refill. Absent: tenderness, pedal edema, joint swelling, calf tenderness Back exam: Present: normal inspection, muscle spasm (right lumbar), other (Bilateral lower extremities neurovascular intact. Pain with bilateral straight leg raise equal bilateral lower extremity strength.) Neurological exam: Present: alert, oriented X3, CN II-XII intact Skin exam: Present: warm, dry, intact, normal color. Absent: rash Course Vital Signs 09/05/23 09/06/23 21:53 01:21 Temperature 98.0 F 98.1 F Pulse Rate 83 84 Respiratory 20 20 Rate Blood Pressure 122/74 121/74 O2 Sat by Pulse 99 99 Oximetry Medical Decision Making - Medical Decision Making I performed the quick note portion of this chart. Electronically signed by Jeannie Cristina PA-C Was pt. sent in by a medical professional or institution ([facility]IN[facility] Fonseca, ASSEMBLY MACHINE FEEDER, urgent care, hospital, or custodial...) When possible be specific @ -No Did you speak to anyone other than the patient for history (EMS, parent, family, police, friend...)? What history was obtained from this source @ -No Did you review nursing and triage notes (agree or disagree)? Why? @ -I reviewed and agree with nursing and triage notes Were old charts reviewed (outside hosp., previous admission, EMS record, old EKG, old radiological studies, urgent care reports/EKG's, custodial records)? Report findings @ -No old charts were reviewed Differential Diagnosis (chest pain, altered mental status, abdominal pain women, abdominal pain men, vaginal bleeding, weakness, fever, dyspnea, syncope, headache, dizziness, GI bleed, back pain, seizure, CVA, palpatations, mental health, musculoskeletal)? @ -Differential Back Pain:Strain, zoster, cauda equina syndrome, epidural abscess, vertebral osteomyelitis, discitis, fracture, subluxation, disc herniation, DJD, spinal stenosis, dissection, AAA, pancreatitis, peptic ulcer disease, pyelonephritis, kidney stone, this is not meant to be an all-inclusive list. EKG interpreted by me (3pts min.). @ -None X-rays interpreted by me (1pt min.). @ -Lumbar spine x-rays interpreted by me negative for acute fractures or dislocations. CT interpreted by me (1pt min.). @ -None done U/S interpreted by me (1pt. min.). @ -None done What testing was considered but not performed or refused? (CT, X-rays, U/S, labs)? Why? @ -None What meds were considered but not given or refused? Why? @ -None Did you discuss the management of the patient with other professionals (professionals i.e. [employer]IN[facility] Fonseca, ASSEMBLY MACHINE FEEDER, lab, RT, psych nurse, bilingual social worker, sports manager, teacher, food safety officer, comp field case manager)? Give summary @ -No Was smoking cessation discussed for >3mins.? @ -No Was critical care preformed (if so, how long)? @ -No Were there social determinants of health that impacted care today? How? (Homelessness, low income, unemployed, alcoholism, drug addiction, transportatio n, low edu. Level, literacy, decrease access to med. care, group home, rehab)? @ -No Was there de-escalation of care discussed even if they declined (Discuss DNR or withdrawal of care, Hospice)? DNR status @ -No What co-morbidities impacted this encounter? (DM, HTN, Smoking, COPD, CAD, Cancer, CVA, ARF, Chemo, Hep., AIDS, mental health diagnosis, sleep apnea, morbid obesity)? @ -Herniated disc/obese Was patient admitted / discharged? Hospital course, mention meds given and route, prescriptions, significant lab abnormalities, going to OR and other pertinent info. @ -Discharge. 48-year-old female presented to the ER with a chief complaint of back pain. History and physical exam completed. Vitals stable. No red flag back pain symptoms indicative cauda equina syndrome. Right paraspinal muscle spasm and tenderness to palpation. No rashes, erythema or contusions present. X-rays will be obtained to rule out osseous process. Patient received IM Decadron and a lidocaine patch placed for pain control in the ER. X-rays obtained negative for acute process. Lidocaine patches prescribed. I advised close follow-up with orthopedics, referral given. Return parameters discussed. Patient discharged in stable condition. Patient verbally expressed understanding and agreement with care plan. Case discussed with ED attending, Dr. Martinez. Undiagnosed new problem with uncertain prognosis? @ -No Drug Therapy requiring intensive monitoring for toxicity (Heparin, Nitro, Insulin, Cardizem)? @ -No Were any procedures done? @ -No Diagnosis/symptom? @ -Muscle spasm/back pain Acute, or Chronic, or Acute on Chronic? @ -Acute Uncomplicated (without systemic symptoms) or Complicated (systemic symptoms)? @ -Uncomplicated Side effects of treatment? @ -No Exacerbation, Progression, or Severe Exacerbation? @ -No Poses a threat to life or bodily function? How? (Chest pain, USA, MT, pneumonia, PE, COPD, DKA, ARF, appy, cholecystitis, CVA, Diverticulitis, Homicidal, Suicidal, threat to staff... and all critical care pts) @ -No - Radiology Data Radiology results: report reviewed, image reviewed Disposition Clinical Impression: Muscle spasm, Back pain Disposition: HOME SELF-CARE Condition: Stable Instructions (If sedation given, give patient instructions): Acute Low Back Pain (ED) Additional Instructions: Follow-up with orthopedics if symptoms persist. Return to the ER for any new or worsening concerns. Prescriptions: Lidocaine 5% Patch [Lidoderm] 1 patch TOPICAL DAILY #30 patch Is patient prescribed a controlled substance at d/c from ED?: No Referrals: Radha Nino MD [Primary Care Provider] - 1-2 days Hood Lu DO [Doctor of Osteopathic Medicine] - 1-2 days Time of Disposition: 00:25
--- NOTE | 2023-09-06 00:22 | XR ---
EXAM: XR Lumbosacral Spine, 2 or 3 Views CLINICAL HISTORY: ITS.REASON XR Reason: pain TECHNIQUE: Frontal and lateral views of the lumbar spine and sacrum. COMPARISON: 12/28/2015. FINDINGS: Vertebrae: The vertebral bodies and the pedicles are unremarkable. Gentle levo scoliosis. There is grade 1 anterolisthesis of L3 upon L4 vertebral. No acute fracture. Sacrum/coccyx: Unremarkable as visualized. No acute fracture. Disc spaces: Mild degenerative disc disease of the lumbar spine. Soft tissues: Unremarkable. Other findings: Status post cholecystectomy. IMPRESSION: 1. Mild degenerative disc disease. 2. Grade 1 anterolisthesis of L3 upon L4 vertebral body.
[2023-09-06] MEDS: DEXAMETHASONE SOD PHOSPHATE 4 MG/ML 1 ML VIAL IM STA (00:38)
[2023-09-06] MEDS: LIDOCAINE 4% PATCH TOPICAL ONE (00:38)
[2023-09-06 01:22] VITALS: BP 121/74; PULSE 84; TEMP 98.1
== END 2023-09-06 01:22 | disposition home or self-care (01) ==
LOC: EC 21:40
DX: M62.830 Muscle spasm of back (principal); Z91.013 Allergy to seafood; Z88.8 Allergy status to other drugs, medicaments and biological substances
CPT/HCPCS: 72100; 99283; 96372; J1100

== ENCOUNTER 2023-09-09 11:37 | Day surgery (SDC) | payer BC ==
[2023-09-03 15:36] VITALS: BMI 42.4
[2023-09-09] MEDS: IV FLUID CONTINUATION 1,000 ML IV ONE (11:49)
[2023-09-09] MEDS ORDERED: LIDOCAINE 1% (10MG/ML) FOR IV START INTRADERMA PRN (11:56)
[2023-09-09 12:04] VITALS: RESP 16; TEMP 97.6
[2023-09-09] MEDS: LACTATED RINGERS 1,000 ML IV SCH (12:09)
[2023-09-09] MEDS ORDERED: LIDOCAINE 2% (PF) 20 MG/ML 5 ML VIAL ONE (12:11)
[2023-09-09] MEDS ORDERED: PROPOFOL 10 MG/ML 20 ML VIAL IV ONE (12:11)
--- NOTE | 2023-09-09 12:17 | P.GSHP ---
History of Present Illness H&P Date: 09/09/23 Chief Complaint: Colon cancer screening 48-year-old female here for colonoscopy. Last colonoscopy 9 to 10 years ago. Patient with worsening constipation recently. Some hemorrhoidal complaints as well. No family history of colon cancer. Past Medical History Past Medical History: Fibromyalgia, Thyroid Disorder Additional Past Medical History / Comment(s): IBS, past hemorrhoids, lupus, back pain History of Any Multi-Drug Resistant Organisms: None Reported Past Surgical History: Adenoidectomy, Appendectomy, Section, Cholecystectomy, Orthopedic Surgery, Tonsillectomy, Tubal Ligation Additional Past Surgical History / Comment(s): ganglion cyst left wrist, D&Cs Past Anesthesia/Blood Transfusion Reactions: No Reported Reaction Past Psychological History: Depression Smoking Status: Never smoker Past Alcohol Use History: None Reported Past Drug Use History: Marijuana - Past Family History Father Family Medical History: CVA/TIA Additional Family Medical History / Comment(s): Father of a CVA at the age of 57yrs. Mother Family Medical History: Cancer, Myocardial Infarction ([place]) Additional Family Medical History / Comment(s): Mother had breast cancer. She had a [place] with stent at the age of 54yrs. She is living. Pt's grandmother on mother's side had a CVA. Medications and Allergies Home Medications Medication Instructions Recorded Confirmed Type Citalopram Hydrobromide [CeleXA] 40 mg PO DAILY 11/10/13 09/09/23 History Levothyroxine Sodium [Synthroid] 100 mcg PO DAILY 11/10/13 09/09/23 History Ergocalciferol [Vitamin D2 50,000 unit PO WE cap 04/19/19 09/09/23 Rx (DRISDOL)] Baclofen [Lioresal] 20 mg PO HS PRN 09/03/23 09/09/23 History Cyanocobalamin [Vitamin B-12 1,000 mcg SQ Q14D 09/03/23 09/09/23 History Injection] Phentermine HCl [Adipex P] 15 mg PO DAILY 09/03/23 09/09/23 History Pregabalin [Lyrica] 150 mg PO BID 09/03/23 09/09/23 History Topiramate [Topamax] 100 mg PO DAILY 09/03/23 09/09/23 History Lidocaine 5% Patch [Lidoderm] 1 patch TOPICAL DAILY #30 patch 09/06/23 09/09/23 Rx Allergies Allergy/AdvReac Type Severity Reaction Status Date / Time loracarbef [From Lorabid] Allergy Rash/Hives Verified 09/09/23 11:57 shellfish derived [Shellfish] Allergy Rash/Hives Verified 09/09/23 11:57 Surgical - Exam Vital Signs Temp Pulse Resp BP Pulse Ox 97.6 F 60 16 120/60 94 L 09/09/23 12:02 09/09/23 12:02 09/09/23 12:02 09/09/23 12:02 09/09/23 12:02 Physical exam: General: Well-developed, well-nourished HEENT: Normocephalic, sclerae nonicteric Abdomen: Nontender, nondistended Extremities: No edema Neuro: Alert and oriented Assessment and Plan (1) Colon cancer screening Narrative/Plan: Will proceed with colonoscopy at this time. Current Visit: Yes Status: Acute Code(s): Z12.11 - ENCOUNTER FOR SCREENING FOR MALIGNANT NEOPLASM OF COLON SNOMED Code(s): 998144831
--- NOTE | 2023-09-09 12:33 | P.PCN ---
Date of Procedure: 09/09/23 Procedure(s) Performed: PREOPERATIVE DIAGNOSIS: Colon cancer screening POSTOPERATIVE DIAGNOSIS: Rectal polyp, external hemorrhoid PROCEDURE: Colonoscopy with snare polypectomy ANESTHESIA: MAC SURGEON: Denver Nino M.D. SPECIMENS: Rectal polyp ENDOSCOPIC PROCEDURE: The patient was placed on the endoscopy table in the left decubitus position. The Olympus colonoscope was inserted into the anus and passed under direct visualization to the base of the cecum. The appendiceal orifice was visualized. From that point the scope was slowly withdrawn inspecting all surfaces carefully. There were no neoplastic inflammatory or polypoid lesions throughout the cecum, ascending, transverse, descending, and s igmoid colon. In the rectum a small polyp was seen and removed using the cold snare technique. The remainder of the rectum was normal. At the anus the patient had a prominent external hemorrhoid in the right posterior position. The patient was taken to the recovery room in stable condition per anesthesia guidelines. RECOMMENDATIONS: Await biopsy results. Will discuss options of operative hemor rhoidectomy. Increase stool softeners.
[2023-09-09 12:50] VITALS: BP 112/64; PULSE 63
== END 2023-09-09 13:10 | disposition home or self-care (01) ==
LOC: ORWHC2ENDO 11:37
PROVIDERS: ATTEND Surgery
DX: Z12.11 Encounter for screening for malignant neoplasm of colon (principal); D12.8 Benign neoplasm of rectum; K64.4 Residual hemorrhoidal skin tags; M79.7 Fibromyalgia; E07.9 Disorder of thyroid, unspecified; K58.9 Irritable bowel syndrome, unspecified; M32.9 Systemic lupus erythematosus, unspecified; Z79.890 Hormone replacement therapy; Z87.19 Personal history of other diseases of the digestive system; Z88.1 Allergy status to other antibiotic agents; Z90.49 Acquired absence of other specified parts of digestive tract; Z98.51 Tubal ligation status; Z90.89 Acquired absence of other organs; Z79.899 Other long term (current) drug therapy; Z91.013 Allergy to seafood
CPT/HCPCS: 81025; 45385; J2704; J2001; 88305

== ENCOUNTER → 2023-12-17 | Outpatient (CLI) | payer BC ==
--- NOTE | 2023-12-17 09:34 | US ---
EXAMINATION TYPE: US abdomen complete DATE OF EXAM: 12/17/2023 COMPARISON: NONE CLINICAL INDICATION: Female, 48 years old with history of R10.811 RIGHT UPPER QUADRANT ABDOMINAL; RUQ pain, nausea, cholecystectomy TECHNIQUE: Grayscale and color Doppler imaging of the abdomen was performed. FINDINGS: EXAM MEASUREMENTS: Liver Length: 14.4 cm Gallbladder Wall: Surgically absent CBD: 0.5 cm Spleen: 10.3 cm Right Kidney: 10.6 x 5.3 x 5.0 cm Left Kidney: 11.5 x 5.2 x 4.6 cm Pancreas: Obscured by bowel gas Liver: wnl Gallbladder: Surgically absent Evidence for sonographic Olivares's sign: no CBD: wnl Spleen: wnl Right Kidney: no evidence of hydronephrosis Left Kidney: no evidence of hydronephrosis Upper IVC: wnl Abd Aorta: wnl The liver is homogenous. The intrahepatic portion of the IVC and proximal abdominal aorta are within normal limits. Common bile duct is unremarkable. The visualized portions of the pancreas are homog enous. The spleen is unremarkable. Kidneys are symmetric and free of hydronephrosis. No renal lesi ons are seen. IMPRESSION: No evidence for acute process. [facility], , 12/17/2023 9:32 AM
--- NOTE | 2023-12-17 12:33 | MM ---
Reason for Exam: Screening (asymptomatic). Last mammogram was performed 1 year(s) and 11 month(s) ago. Patient History: Menarche at age 12. First Full-Term at age 25. Premenopausal. Patient used Progesterone for 1 year. Patient used Hormonal Contraceptives for 10 years. Paternal grandmother had breast cancer. Mother had breast cancer, age 38. Last menstrual period: 12/17/2023 Risk Values: Sydnee 5 year model risk: 1.8%. NCI Lifetime model risk: 17.3%. Prior Study Comparison: 09/03/2018 Bilateral Screening Mammogram, [facility]. 01/22/2022 Bilateral MG 3D screening mammo w/cad, [facility]. 08/29/2022 Right MG 3D diag mammo w/cad RT, [facility]. Tissue Density: There are scattered areas of fibroglandular density. Findings: Analyzed By CAD. There is no suspicious group of microcalcifications or new suspicious mass in either breast. Overall Assessment: Benign, BI-RAD 2 Management: Screening Mammogram of both breasts in 1 year. . Patient should continue monthly self-breast exams. A clinical breast exam by your physician is recommended on an annual basis. This exam should not preclude additional follow-up of suspicious palpable abnormalities. Note on Sydnee scores and lifetime risk: 1. A Sydnee score greater than 3% is considered moderate risk. If this is the case, consider specialist referral to assess eligibility for a risk reducing agent. 2. If overall lifetime risk for the development of breast cancer is 20% or higher, the patient may qualify for future screening with alternating mammogram and breast MRI. [facility], , 12/17/2023 12:30 PM. Electronically signed and approved by: Sae Gomez M.D. Radiologis
== END | disposition home or self-care (01) ==
LOC: RADUSWWP 06:58
PROVIDERS: ATTEND Family Medicine
DX: Z12.31 Encounter for screening mammogram for malignant neoplasm of breast (principal); R10.811 Right upper quadrant abdominal tenderness; Z80.3 Family history of malignant neoplasm of breast; R92.323 Mammographic fibroglandular density, bilateral breasts
CPT/HCPCS: 76700; 77063; 77067

== ENCOUNTER 2024-06-01 17:24 | Emergency (ER) | payer BC ==
[2024-06-01 17:31] VITALS: TEMP 98
--- NOTE | 2024-06-01 18:11 | ED ---
General Adult HPI - General Chief complaint: Syncope Stated complaint: passed out, head injury Time Seen by Provider: 06/01/24 17:45 Source: patient Mode of arrival: ambulatory Limitations: no limitations - History of Present Illness Initial comments: Dictation was produced using [employer] dictation software. please excuse any grammatical, word or spelling errors. Chief Complaint: 49-year-old female presents with gastroenteritis and syncope History of Present Illness: Patient 49-year-old female she states she got the stomach flu from her . States that her did not have significant symptoms. Since last night she has been having nausea vomiting diarrhea. Patient also complaining of mild headache. She was on the toilet vomiting when all of a sudden she wakes up on the floor. She had some head pain. Patient states that she probably passed out and hit her head on the toilet. Complains of pain to the occiput. Patient feels malaised at the bedside. The ROS documented in this emergency department record has been reviewed and confirmed by me. Those systems with pertinent positive or negative responses have been documented in the HPI. All other systems are other negative and/or noncontributory. - Related Data Home Medications Medication Instructions Recorded Confirmed Citalopram Hydrobromide [CeleXA] 40 mg PO DAILY 11/10/13 09/09/23 Levothyroxine Sodium [Synthroid] 100 mcg PO DAILY 11/10/13 09/09/23 Baclofen [Lioresal] 20 mg PO HS PRN 09/03/23 09/09/23 Cyanocobalamin [Vitamin B-12 1,000 mcg SQ Q14D 09/03/23 09/09/23 Injection] Phentermine HCl [Adipex P] 15 mg PO DAILY 09/03/23 09/09/23 Pregabalin [Lyrica] 150 mg PO BID 09/03/23 09/09/23 Topiramate [Topamax] 100 mg PO DAILY 09/03/23 09/09/23 Previous Rx's Medication Instructions Recorded Ergocalciferol [Vitamin D2 50,000 unit PO WE cap 04/19/19 (DRISDOL)] Lidocaine 5% Patch [Lidoderm] 1 patch TOPICAL DAILY #30 patch 09/06/23 Ondansetron Odt [Zofran Odt] 4 mg PO Q8HR PRN #12 tab 06/01/24 Allergies Allergy/AdvReac Type Severity Reaction Status Date / Time loracarbef [From Lorabid] Allergy Rash/Hives Verified 06/01/24 17:31 shellfish derived [Shellfish] Allergy Rash/Hives Verified 06/01/24 17:31 Review of Systems ROS Statement: Those systems with pertinent positive or pertinent negative responses have been documented in the HPI. ROS Other: All systems not noted in ROS Statement are negative. Past Medical History Past Medical History: Fibromyalgia, Thyroid Disorder Additional Past Medical History / Comment(s): IBS, past hemorrhoids, lupus, back pain History of Any Multi-Drug Resistant Organisms: None Reported Past Surgical History: Adenoidectomy, Appendectomy, Section, Cholecystectomy, Orthopedic Surgery, Tonsillectomy, Tubal Ligation Additional Past Surgical History / Comment(s): ganglion cyst left wrist, D&Cs Past Anesthesia/Blood Transfusion Reactions: No Reported Reaction Past Psychological History: Depression Smoking Status: Never smoker Past Alcohol Use History: None Reported Past Drug Use History: Marijuana - Past Family History Father Family Medical History: CVA/TIA Additional Family Medical History / Comment(s): Father of a CVA at the age of 57yrs. Mother Family Medical History: Cancer, Myocardial Infarction ([place]) Additional Family Medical History / Comment(s): Mother had breast cancer. She had a [place] with stent at the age of 54yrs. She is living. Pt's grandmother on mother's side had a CVA. General Exam - General Exam Comments Initial Comments: PHYSICAL EXAM: General Impression: Alert and oriented x3, not in acute distress HEENT: Normocephalic atraumatic, extra-ocular movements intact, pupils equal and reactive to light bilaterally, mucous membranes moist. Cardiovascular: Heart regular rate and rhythm Chest: Able to complete full sentences, no retractions, no tachypnea Abdomen: abdomen soft, non-tender, non-distended, no organomegaly Musculoskeletal: Pulses present and equal in all extremities, no peripheral edema Motor: no focal deficits noted Neurological: CN II-XII grossly intact, no focal motor or sensory deficits noted Skin: Intact with no visualized rashes Psych: Normal affect and mood Limitations: no limitations Course Vital Signs 06/01/24 06/01/24 17:27 19:48 Temperature 98.0 F Pulse Rate 107 H 90 Respiratory 15 18 Rate Blood Pressure 137/82 112/76 O2 Sat by Pulse 97 94 L Oximetry Medical Decision Making - Medical Decision Making Was pt. sent in by a medical professional or institution ([facility]onseca, PBX INSPECTOR, urgent care, hospital, or residential...) When possible be specific @ -No Did you speak to anyone other than the patient for history (EMS, parent, family, police, friend...)? What history was obtained from this source @ -No Did you review nursing and triage notes (agree or disagree)? Why? @ -I reviewed and agree with nursing and triage notes Were old charts reviewed (outside hosp., previous admission, EMS record, old EKG, old radiological studies, urgent care reports/EKG's, residential records)? Report findings @ -No old charts were reviewed Differential Diagnosis (chest pain, altered mental status, abdominal pain women, abdominal pain men, vaginal bleeding, musculoskeletal, weakness, fever, dyspnea, syncope, headache, dizziness, GI bleed, back pain, seizure, CVA, palpatations, mental health)? @ -Gastroenteritis, diverticulitis, food poisoning EKG interpreted by me (3pts min.). @ -None done X-rays interpreted by me (1pt min.). @ -None done CT interpreted by me (1pt min.). @ -CT brain and C-spine shows no acute processes U/S interpreted by me (1pt. min.). @ -None done What testing was considered but not performed or refused? (CT, X-rays, U/S, labs)? Why? @ -None What meds were considered but not given or refused? Why? @ -None Was smoking cessation discussed for >3mins.? @ -No Were there social determinants of health that impacted care today? How? (Homelessness, low income, unemployed, alcoholism, drug addiction, transportation, low edu. Level, literacy, decrease access to med. care, custodial, rehab)? @ -No Was there de-escalation of care discussed even if they declined (Discuss DNR or withdrawal of care, Hospice)? DNR status @ -No What co-morbidities impacted this encounter? (DM, HTN, Smoking, COPD, CAD, Cancer, CVA, ARF, Chemo, Hep., AIDS, mental health diagnosis, sleep apnea, morbid obesity)? @ -None Was patient admitted / discharged? Hospital course, mention meds given and route, prescriptions, significant lab abnormalities, going to OR and other pertinent info. @ -49-year-old female presents to the emergency department with gastroenteritis. She suffered a syncopal episode while vomiting. Patient has no cardiac history. Vital signs upon arrival are within acceptable limits. She states she did hit her head. Vital signs shows well-appearing female in no significant distress. CT head and C-spine shows no acute processes. Laboratory evaluation obtained. Lab within acceptable limits except for some mild acidosis and hypokalemia. Patient given IV fluids and potassium replacement. Patient symptoms improved after antiemetics and analgesics. Patient be discharged. Advised follow-up with primary care doctor. Did you discuss the management of the patient with other professionals (professionals i.e. , PA, PBX INSPECTOR, lab, RT, psych nurse, social service assistant, loom stop checker, teacher, school services officer, case management specialist)? Give summary @ -No Was critical care preformed (if so, how long)? @ -No Undiagnosed new problem with uncertain prognosis? @ -No Drug Therapy requiring intensive monitoring for toxicity (Heparin, Nitro, Insulin, Cardizem)? @ -No Were any procedures done? @ -No Diagnosis/symptom? Acute, or Chronic, or Acute on Chronic? Uncomplicated (without systemic symptoms) or Complicated (systemic symptoms)? @ -Gastroenteritis, syncope, no high risk features Side effects of treatment? @ -No Exacerbation, Progression, or Severe Exacerbation? @ -No Poses a threat to life or bodily function? How? (Chest pain, [place], [place], pneumonia, PE, COPD, DKA, ARF, appy, cholecystitis, CVA, Diverticulitis, Homicidal, Suicidal, threat to staff... and all critical care pts) @ -No - Lab Data Result diagrams: 06/01/24 18:13 06/01/24 18:13 Lab Results 06/01/24 06/01/24 06/01/24 Range/Units 18:13 18: 18: WBC 7.1 (3.8-10.6) k/uL RBC 4.87 (3.80-5.40) m/uL Hgb 13.3 (11.4-16.0) gm/dL Hct 40.4 (34.0-46.0) % MCV 82.9 (80.0-100.0) fL MCH 27.4 (25.0-35.0) pg MCHC 33.0 (31.0-37.0) g/dL RDW 14.5 (11.5-15.5) % Plt Count 205 (150-450) k/uL MPV 7.0 Neutrophils % 92 % Lymphocytes % 4 % Monocytes % 2 % Eosinophils % 0 % Basophils % 0 % Neutrophils # 6.6 (1.3-7.7) k/uL Lymphocytes # 0.3 L (1.0-4.8) k/uL Monocytes # 0.2 (0-1.0) k/uL Eosinophils # 0.0 (0-0.7) k/uL Basophils # 0.0 (0-0.2) k/uL Sodium 136 L (137-145) mmol/L Potassium 3.2 L (3.5-5.1) mmol/L Chloride 105 (98-107) mmol/L Carbon Dioxide 18 L (22-30) mmol/L Anion Gap 13 mmol/L BUN 21 H (7-17) mg/dL Creatinine 0.88 (0.52-1.04) mg/dL Est GFR (CKD-EPI)AfAm 90 (>60 ml/min/1.73 sqM) Est GFR (CKD-EPI)NonAf 78 (>60 ml/min/1.73 sqM) Glucose 142 H (74-99) mg/dL Calcium 9.0 (8.4-10.2) mg/dL Influenza Type A (PCR) Not Detected (Not Detectd) Influenza Type B (PCR) Not Detected (Not Detectd) RSV (PCR) Not Detected (Not Detectd) SARS-CoV-2 (PCR) Not Detected (Not Detectd) Disposition Clinical Impression: Gastroenteritis Disposition: HOME SELF-CARE Condition: Fair Prescriptions: Ondansetron Odt [Zofran Odt] 4 mg PO Q8HR PRN #12 tab PRN Reason: Nausea Is patient prescribed a controlled substance at d/c from ED?: No Referrals: Radha Nino MD [Primary Care Provider] - 1-2 days Time of Disposition: 21:03
[2024-06-01] MEDS: KETOROLAC 15 MG/ML 1 ML VIAL IVP STA (18:19)
[2024-06-01] MEDS: SODIUM CHLORIDE 0.9% 1,000 ML IV STA (18:19)
[2024-06-01] MEDS: ONDANSETRON 4 MG/2 ML VIAL IVP STA (18:19)
[2024-06-01 18:26] LABS: Basophils % (A) 0 %; Eosinophils % (A) 0 %; HCT 40.4 % (34.0-46.0); HGB 13.3 gm/dL (11.4-16.0); Lymphocytes # (A) 0.3 k/uL (1.0-4.8); Lymphocytes % (A) 4 %; MCH 27.4 pg (25.0-35.0); MCV 82.9 fL (80.0-100.0); Monocytes # (A) 0.2 k/uL (0-1.0); Monocytes % (A) 2 %; Neutrophils # (A) 6.6 k/uL (1.3-7.7); Neutrophils % (A) 92 %; Platelet Count 205 k/uL (150-450); RBC 4.87 m/uL (3.80-5.40); RDW 14.5 % (11.5-15.5); WBC 7.1 k/uL (3.8-10.6)
[2024-06-01 18:32] LABS: African American GFR (CKD) 90 (>60 ml/min/1.73 sqM); Anion Gap 13 mmol/L; Blood Urea Nitrogen 21 mg/dL (7-17); Carbon Dioxide 18 mmol/L (22-30); Chloride 105 mmol/L (98-107); Glucose 142 mg/dL (74-99); Non-African American GFR(CKD) 78 (>60 ml/min/1.73 sqM); Potassium 3.2 mmol/L (3.5-5.1); Sodium 136 mmol/L (137-145)
[2024-06-01 19:00] LABS: Influenza A Not Detected (Not Detectd); Influenza B Not Detected (Not Detectd); RSV Not Detected (Not Detectd)
--- NOTE | 2024-06-01 19:16 | CT ---
EXAMINATION TYPE: CT brain cspine wo con DATE OF EXAM: 06/01/2024 6:58 PM COMPARISON: Previous MRI study dated 03/14/2021. CLINICAL INDICATION: Female, 49 years old with history of fall; Syncope, +LOC. Nausea. Neck pain. TECHNIQUE: Brain: Multiple axial CT images of the brain were obtained without IV contrast. Cspine: Axial CT images from the skull base to the inferior aspect of T2 we obtained without intraven ous contrast. Coronal and sagittal reformatted images were also reviewed. . CT DLP: 1577.3 mGycm, Automated exposure control for dose reduction was used. FINDINGS: Brain: Extra-axial spaces: No abnormal extra-axial fluid collections. Ventricular system: Within normal limits Cerebral parenchyma: No acute intraparenchymal hemorrhage or mass effect. The graves-white junction is well differentiated. Cerebellum: Unremarkable. Mass effect: No evidence of midline shift. Intracranial vasculature: unremarkable Soft tissues: Normal. Calvarium/osseous structures: No depressed skull fracture. Paranasal sinuses and mastoid air cells: Clear. Visualized orbits: Orbital contents are intact. Cervical spine: Fracture: None. Osseous structures: Anterior cervical spinal fusion hardware visualized at C5-C6 with C5-C6 intervert ebral disc spacer device. No acute periprosthetic loosening. Multilevel degenerative disc disease anival nges with endplate spurring and disc osteophyte complex's. Vertebral alignment: Straightening of the normal cervical spine lordotic curvature. No traumatic subl uxation. Spinal canal/Neural Foramina: Uncovertebral/facet hypertrophy causing degrees of neural foraminal manish rowing at remaining levels. Spinal canal not well evaluated due to streak artifact. Neck soft tissues: Prevertebral soft tissues are within normal limits. Other: The airway is patent. The lung apices are clear. IMPRESSION: 1. No acute intracranial process. 2. No acute fracture or traumatic subluxation of the cervical spine. 3. Anterior cervical spinal fusion hardware spanning C5-C6 without evidence of acute hardware failur e. [facility], , 06/01/2024 7:14 PM
[2024-06-01 19:49] VITALS: BP 112/76; RESP 18
[2024-06-01] MEDS ORDERED: MORPHINE SULFATE 4 MG/ML SYRINGE IVP PRN (19:57)
[2024-06-01] MEDS: POTASSIUM CHLORIDE ER 20 MEQ TAB.ER PO STA (20:18)
[2024-06-01] MEDS: DIPHENOX-ATROP STARTER PACK 8 TAB BTL PO STA (21:37)
[2024-06-01] MEDS: ONDANSETRON 4 MG ODT STARTER PACK 2 TAB BTL PO STA (21:38)
[2024-06-01 21:48] VITALS: PULSE 93
== END 2024-06-01 21:48 | disposition home or self-care (01) ==
LOC: EC 17:24
DX: K52.9 Noninfective gastroenteritis and colitis, unspecified (principal); R55 Syncope and collapse; E87.20 Acidosis, unspecified; E87.6 Hypokalemia; Z88.1 Allergy status to other antibiotic agents; Z91.013 Allergy to seafood
CPT/HCPCS: 36415; 93005; 80048; 85025; 87636; 72125; 70450; 99284; 96374; 96375; 96361; J2405; J1885; S0119

== ENCOUNTER → 2024-08-19 | Outpatient (CLI) | payer BC ==
[2024-08-19 12:53] VITALS: BP 156/74; PULSE 74; RESP 18; TEMP 97.9
--- NOTE | 2024-08-23 14:23 | P.PAINPG ---
PQRS Measure Charge Sheet Comment: HISTORY OF PRESENT ILLNESS: A 49 yr old female as a referral from Ashley DEMARCO presents today w severe and chronic LBP > 1 yr secondary to radiculopathy, spondylosis and facet arthropathy without myelopathy for evaluation. Pt states pain level is provoked at 6 /10 in intensity, constant, localized in the lumbar spine, predominantly axial, dull in character without shooting pain . Pain is provoked by over activity. Pain is alleviated by PT x 6 wks which ended in 2022, physician guided home stretches daily since 2022, heat, medications, repositioning and rest . Oswestry axial pain score at 23. PMH: OA, Fibromyalgia, Hypothyroidism, IBS, SLE, MDD PSH: ACDF C5-C6, Adenoidectomy, Appendectomy, Section, Cholecystectomy, L Wrist Ganglion Cystectomy, Tonsillectomy, Tubal Ligation, D&Cs SH: Never smoker, No ETOH use, Cannabis use FH: Fa- CVA, age 57. Mo- PA, Breast CA All: See list Medications include Lyrica, Flexeril REVIEW OF ORGAN SYSTEMS: CONSTITUTIONAL: No fevers or chills. No recent weight loss. NEUROLOGICAL: + numbness and tingling along the distal extremities. No seizure disorders or headaches. MUSCULOSKELETAL: + pain PSYCHIATRIC: Denies current depression or suicidal thoughts. Physical Examinations : Constitutional : Cooperative , not in acute distress . Neurologic : Cranial nerve II to XII intact. No focal neurological deficits. Psychiatric : alert & oriented x 3. Matching mood & appropriate affect. Judgment & insight intact. Musculoskeletal : Cervical Spine Motor strength in the deltoid and biceps: Normal right side. Normal Left side Motor strength biceps and the wrist extensors: Normal right side . Normal left side Motor strength in the triceps muscle: Normal right side. Normal left side Deep tendon reflexes: Normal at the biceps. Normal at Brachioradialis. Normal at triceps Vertebral body tenderness to deep palpation over Cervical facet loading test: positive bilaterally Spurling test: positive bilaterally Neck distraction test: positive bilaterally Evens sign: positive bilaterally Lumbar spine Motor strength lower extremities ,thigh and legs 5/5 Right side , 5/5 Left side Deep tendon reflexes : Normal Knee Jerk. Normal Ankle Jerk Vertebral body tenderness over Christian Test positive Lumbar facet Loading Test: positive Right / positive Left Taut bands w twitch response over BL L3-S1 Range of motion of the lumbar spine Flexion 30 degrees, extension 10 degrees Straight Leg Raise test: Left/ Right positive at degrees Stephanie test: positive right / positive left. Severe tenderness over the Sacroiliac joint on the Right / Left sides Gaenslen test: positive bilaterally Seated flexion test: positive bilaterally. Sacral spine : Severe tenderness over the Sacroiliac joint: right side / left side Range of motion: Flexion of the lumbar spine <60 degrees Range of motion: Extension of the lumbar spine <20 degrees Gaenslen's Test positive Stephanie test: positive right side / left side Thigh Thrust Test Sacral Thrust Test Imaging: X ray lumbar spine from July [address] without contrast brain, cervical from 06/01/24 reviewed Assessment/ Plan : lumbar radiculopathy Recommendation of BL TPIs L3-S1 #1. Awaiting lumbar MRI report from Dr Horne's office. Risks, benefits of procedure discussed and patient verbalized understanding. Admits to anti- coagulant use or medical history of diabetes. Protocol for discontinuation/ continuation of medications mckinley procedure disc ussed. Tylenol #3 #18 NR. Use, side effects, adverse reactions, safe storage discussed. All questions answered. I have spent greater than 30 minutes on patient care today. Dr Vargas was available by phone for the evaluation of this patient. The time was used to review the medical records including relevant urine studies and Prescription history (MAPs), review of the available imaging, evaluation and examination of the patient, coordination of care with the medical staff and if applicable referring physicians, as well as creation of the medical record PQRS Narrative: Smoking Status Former smoker Home Medications: Ambulatory Orders Citalopram Hydrobromide [CeleXA] 40 mg PO DAILY 11/10/13 Levothyroxine Sodium [Synthroid] 100 mcg PO DAILY 11/10/13 Ergocalciferol [Vitamin D2 (DRISDOL)] 50,000 unit PO WE cap 04/19/19 Baclofen [Lioresal] 20 mg PO HS PRN 09/03/23 Cyanocobalamin [Vitamin B-12 Injection] 1,000 mcg SQ Q14D 09/03/23 Phentermine HCl [Adipex P] 15 mg PO DAILY 09/03/23 Pregabalin [Lyrica] 150 mg PO BID 09/03/23 Topiramate [Topamax] 100 mg PO DAILY 09/03/23 Lidocaine 5% Patch [Lidoderm] 1 patch TOPICAL DAILY #30 patch 09/06/23 Ondansetron Odt [Zofran Odt] 4 mg PO Q8HR PRN #12 tab 06/01/24 Acetaminophen-Codeine 300-30mg [Tylenol w/codeine #3] 1 tab PO Q4H PRN 3 Days #18 tablet 08/19/24 Controlled Substance Measures - Controlled Substance Measures Is patient prescribed a controlled substance at discharge?: Yes When asked, does pt state using other controlled substances?: Yes If prescribed controlled substance>3 days was MAPS reviewed?: Prescribed <3 Days
== END ==
LOC: PNWHC3 10:04
PROVIDERS: ATTEND Specialist
DX: M47.26 Other spondylosis with radiculopathy, lumbar region (principal); Z87.891 Personal history of nicotine dependence; Z91.013 Allergy to seafood; Z88.5 Allergy status to narcotic agent
CPT/HCPCS: 99202